=== PATIENT | male | born 1970 | race Caucasian/White ===

== ENCOUNTER 2023-05-27 10:37 | Outpatient (OUT) | payer MEDICARE, SELFPAY ==
--- NOTE | 2023-05-27 10:49 | XR_ITS ---
The [address] [address] Patient Name: JENNY SAEZ MRN: [id number] date: 1970 Sex: M Assigned Patient Location: [facility] Current Patient Location: [facility] Accession/Order Number: [id number] Exam Date: 05/27/2023 10:58 Report Date: 05/27/2023 13:00 At the request of: JEOVANNY CH Procedure: XR knee RT 3V EXAM: XR knee RT 3V HISTORY: . Acute Knee Pain M25.569 . COMPARISON: None. TECHNIQUE: 3 views FINDINGS: There is mild narrowing of the medial joint compartment. Spurs are noted involving the knee joint as well as the patellofemoral joint. No fracture or dislocation is noted. Surrounding soft tissues are unremarkable. XR/XR knee RT 3V IMPRESSION: Mild to moderate osteoarthritic changes of the right knee. Electronically authenticated by: KARYNA HALLMAN Date: 05/27/2023 13:00
== END 2023-05-27 10:38 | disposition home or self-care (01) ==
LOC: RAD 10:44
PROVIDERS: PCP Family Medicine; Visit Provider Family Medicine
DX: M25.569 Pain in unspecified knee (principal); M17.11 Unilateral primary osteoarthritis, right knee
CPT/HCPCS: 73562

== ENCOUNTER 2023-06-01 10:04 | Outpatient (OUT) | payer MEDICARE, SELFPAY ==
--- NOTE | 2023-06-01 10:09 | MR_ITS ---
[place] [id number] Patient Name: JENNY SAEZ MRN: [id number] date: 1970 Sex: M Assigned Patient Location: MRI Current Patient Location: MRI Accession/Order Number: [id number] Exam Date: 06/01/2023 11:00 Report Date: 06/01/2023 12:10 At the request of: JEOVANNY CH Procedure: MR knee RT wo con EXAMINATION: MR knee RT wo con HISTORY: knee pain, acute M25.569 COMPARISON: No relevant comparison available. TECHNIQUE: A complete multi-planar MRI was performed. FINDINGS: MEDIAL COMPARTMENT MEDIAL MENISCUS: Markedly thickened medial meniscus with partial extrusion of the body. Signal abnormality suspicious for tear of the body best seen on coronal image 18 CARTILAGE: Moderate diffuse chondromalacia BONES: Moderate joint space narrowing with marginal osteophyte formation consistent with osteoarthritis . Large area of bone edema in the anterior medial tibial plateau measuring 3.9 x 1.9 x 3.4 cm MCL AND MEDIAL CAPSULE: Normal medial collateral ligament and medial capsule. LATERAL COMPARTMENT LATERAL MENISCUS: No visible tear or significant degeneration. CARTILAGE: No visible defect. BONES: No marrow pathology, fracture, or significant arthropathy. LCL/POSTEROLAT COMPLEX: Normal lateral collateral ligament, fascicles, lateral capsule and ligaments. ANTERIOR COMPARTMENT PATELLA: Subchondral signal abnormality most significant along the lateral patellar facet CARTILAGE: Rogers 4 chondromalacia TENDONS: Normal. EFFUSION: Small joint effusion ACL: Normal appearing ligament. PCL: Normal appearing ligament. MENISCOFEMORAL: Normal meniscofemoral ligaments. OTHER: Negative. MR/MR knee RT wo con IMPRESSION: Moderate to severe osteoarthritis of the medial and anterior compartments Grade IV chondromalacia of the patella most significant in the lateral patellar facet 3.9 cm area of bone edema anterior medial tibial plateau Electronically authenticated by: KARYNA COATES Date: 06/01/2023 12:10
== END 2023-06-01 10:05 | disposition home or self-care (01) ==
LOC: MRI 10:05
PROVIDERS: PCP Family Medicine; Visit Provider Family Medicine
DX: M25.569 Pain in unspecified knee (principal)
CPT/HCPCS: 73721

== ENCOUNTER 2023-12-28 08:03 | Outpatient (OUT) | payer MEDICARE, MEDICAID, SELFPAY ==
--- NOTE | 2023-12-28 08:05 | CT_ITS ---
The [address] [address] Patient Name: JENNY SAEZ MRN: [id number] date: 1970 Sex: M Assigned Patient Location: CT Current Patient Location: Accession/Order Number: [id number] Exam Date: 12/28/2023 08:13 Report Date: 12/29/2023 15:39 At the request of: JEOVANNY CH Procedure: CT lung screening low-dose EXAMINATION: CT lung screening low-dose HISTORY: Smoker COMPARISON: No relevant comparison available. TECHNIQUE: Axial, Coronal, and Sagittal images were created without the administration of IV contrast material. Dose reduction techniques were achieved by using automated exposure control and/or adjustment of mA and/or kV according to patient size and/or use of iterative reconstruction technique. FINDINGS: LUNGS: Mild centrilobular emphysema with an upper lobe predominance. A few scattered punctate pulmonary nodules are identified, nonspecific PLEURA: No mass, effusion, or pneumothorax. VASCULATURE: No abnormality. ABUNDIO: No mass or pathologic adenopathy. MEDIASTINUM: No mass or pathologic adenopathy. CARDIAC: No enlargement or pericardial effusion CORONARY ARTERIES: Patient has had previous coronary artery stenting.. AORTA: No aortic aneurysm. Moderate calcific atherosclerosis CHEST WALL: No mass or axillary adenopathy BONES: No bone lesion or fracture. LIMITED ABDOMEN: No suspicious findings. Limited images of the upper abdomen. OTHER: Negative. CT/CT lung screening low-dose IMPRESSION: LUNG SCREENING: Lung-RADS Category 2- Benign Appearance or Behavior. Nodules with a very low likelihood of becoming a clinically active cancer due to size or lack of growth. 2. Continue annual screening with LDCT in 12 months. Electronically authenticated by: KARYNA COATES Date: 12/29/2023 15:39
== END 2023-12-28 08:04 | disposition home or self-care (01) ==
LOC: CT 08:03
PROVIDERS: PCP Family Medicine; Visit Provider Family Medicine
DX: F17.210 Nicotine dependence, cigarettes, uncomplicated (principal); R91.8 Other nonspecific abnormal finding of lung field; J43.2 Centrilobular emphysema
CPT/HCPCS: 71271

== ENCOUNTER 2024-05-16 14:01 | Outpatient (OUT) | payer MEDICARE, MEDICAID, SELFPAY ==
--- NOTE | 2024-05-16 | XR_ITS ---
[place] [id number] Patient Name: JENNY SAEZ MRN: [id number] date: 1970 Sex: M Assigned Patient Location: Current Patient Location: Accession/Order Number: [id number] Exam Date: 05/16/2024 17:30 Report Date: 05/16/2024 17:31 At the request of: KATHY GALARZA MD Procedure: XR knee RT 4V 4 views right knee plain film COMPARISON: None HISTORY: Right knee pain ACUTE FINDINGS: No acute findings DEGENERATIVE CHANGE: Adequate sunrise view with marginal spurring marked medial joint space narrowing. Mild lateral joint space narrowing. Marginal spurring SOFT TISSUE FINDINGS: Unremarkable JOINT EFFUSION: None POSTOP CHANGES: None BONE MINERALIZATION: Adequate XR/XR knee RT 4V IMPRESSION: Extensive degeneration greatest in medial compartment Impression dictated by: Justin Gaines M.D.05/16/2024 5:31 PM Dictation Location: [place] [address] Electronically authenticated by: [id number] Y Date: 05/16/2024 17:31
== END 2024-05-16 14:02 | disposition home or self-care (01) ==
LOC: EC 14:01
PROVIDERS: PCP Family Medicine; Visit Provider Student in an Organized Health Care Education/Training Program
DX: M17.11 Unilateral primary osteoarthritis, right knee (principal)
CPT/HCPCS: 73564

== ENCOUNTER 2025-01-02 08:46 | Outpatient (OUT) | payer MEDICARE, MEDICAID, SELFPAY ==
--- OUTSIDE RECORDS SUMMARY | 2025-01-02 08:52 | XMS_ITS | Patient Health Record ---
Author Organization [facility] Address [address] [place] [address] Care Team Providers Care Ribber Name Role Phone EstebanRebelRudy Primary Care Provider Rafa Torres Unavailable [phone] Kyle Hendricks Unavailable [phone] Allergies Allergen (clinical drug ingredient) Drug/Non Drug Allergy documented on EMR Reaction Allergy Type Onset Date Status tramadol Ultram Unknown Drug Allergy Active Reason For Referral No Information Medications Medication SIG (Take, Route, Frequency, Duration) Notes Start Date End Date Status metoprolol ActiveatorvastatinActiveLasixActiveaspirinNot-TakinglisinoprilActivePlavixActive Social History Tobacco Use: Social History Observation Description Date Details (start date - stop date) Current Smoker NA - NA AUDIT-C (Standard) Question Answer Notes Did you have a drink containing alcohol in the p ast year? No Tobacco Control (Standard) Question Answer Notes Tobacco use: Current smoker Problems Problem Type SNOMED Code ICD Code Onset Dates Problem Status W/U Status Risk Notes Problem Osteoarthritis of knee (56841183 7) Primary osteoarthritis of right knee (M17.11) Activeconfirmed Encounters Encounter Location Date Provider Diagnosis [facility] Office [address] [place] [address] [place] [address] 05/16/2024 Kyle Hendricks Primary osteoarthrit is of right knee M17.11 Assessments Encounter Date Diagnosis (ICD Code) Assessment Notes Treatment Notes Treatment Clinical Notes Section Notes 05/16/2024 Primary osteoarthritis of right knee (ICD-10 - M17.11) Right knee OA05/16/2024OtherI discussed today with the patient regards right knee pain. Has had prior arthroscopy with Dr. Frost with no relief. Has not tried an injection yet. Prior to proceeding forward to total with attempted injection. Follow-up in 6 weeksRight knee OA Plan Of Treatment Pending Test Test Name Order Date SCC- KNEE 4 VIEW RIGHT [id number] 05/16/2024 Insurance Providers Payer Name Payer Address Payer Phone Subscriber Number Group Number Insured Name Patient Relationship to Insured Coverage Start Date Coverage [place] [address] [place] [address] [id number] CHARLA SAEZelf - patient is the insured[place] Dept of MedicaidP [address] [place] [id number], BRIANSelf - patient is the insured Medical (General) History Medical History History ICD Code Heart attack: Yes Bleeding/Bruising tendency: : YesHeart Attack: YesHeart condition:: YesHeart problems:: YesHeart Stents: YesSurgical History Surgery Date(Month/Year) Heart stents
--- OUTSIDE RECORDS SUMMARY | 2025-01-02 08:52 | XMS_ITS | Clinical Summary ---
Author Organization [facility] Address [address] [place] [address] Phone Care Team Providers Care Student Outreach Coordinator Name Role Phone Rudy Orellana MD Primary Care Provider [phone] Allergies Active AllergyReactionsCriticalityNoted DateCommentsTicagrelorShortness of snovanTucc59/09/2023 Medications MedicationSigDispense QuantityRefillsLast FilledStart DateEnd DateStatus buprenorphine-naloxone (Suboxone) 8-2 mg SL film dissolve 1 film under the tongue once daily01/22/2021ctive nitroglycerin (Nitrostat) 0.[address] TABLET UNDER THE TONGUE EVERY FIVE MINUTES FOR UP TO 3 (THREE) DOSES NEEDED FOR CHEST PAIN. CALL 911 IF PAIN IEPVHLDB50/31/2022ctive lisinopril 5 mg tablet Indications:Benign essential hypertensionTake 0.5 tablets (2.5 mg) by mouth once daily. 45 tablet 4Active nicotine (Nicoderm CQ) 7 mg/24 hr patch Indications:Current smokerPlace 1 patch over 24 hours on the skin once every 24 hours. 30 patch 4Active furosemide (Lasix) 20 mg tablet Indications:Cardiomyopathy, unspecified type (Multi)Take 1 tablet (20 mg) by mouth once daily. 90 tablet 312/5Active clopidogrel (Plavix) 75 mg tablet Indications:Coronary stent thrombosis, initial encounter,History of PTCATake 1 tablet (75 mg) by mouth once daily. 90 tablet /6Active atorvastatin (Lipitor) 80 mg tablet Indications:Hyperlipidemia, unspecified hyperlipidemia type,History of PTCATake 1 tablet (80 mg) by mouth once daily at bedtime. 90 tablet 309/ 5:00 PM EDT/ctive metoprolol succinate XL (Toprol-XL) 25 mg 24 hr tablet Indications:Primary hypertension,Angina pectorisTake 1 tablet (25 mg) by mouth once daily. 90 tablet 5:00 PM EDT/ctive varenicline tartrate (Chantix ZARINA) 0.5 mg (11)- 1 mg (42) tablet DIRECTED EVERY DAY and then TWICE DAILY09/05/2024tive Active Problems ProblemNoted DateDiagnosed DateBMI 28.0-28.9,adult06/09/2023ngina pectoris 12/15/2022therosclerosis of [place] coronary artery of [place] heart without angina mtefejww87/09/2023rimary hrxnvfasyzwj63/09/2593Qmumzepiuvrnym71/09/2023 Coronary stent /09/2023urrent abwous5912/15/2022History of [place] (myocardial infarction)12/15/2022History of PTCA1Hyperlipidemia 12/15/2022Non-dolbthilrk20/09/2023Upper respiratory zaojbzibn08/09/2023 Encounters DateTypeDepartmentCare KjvtVlbndhvtcdi50/31/2025 9:50 AM EDTOffice Visit [place] [address] [address] [address] Arnol Jalloh, DO Atherosclerosis of [place] coronary artery of [place] heart without angina pectoris; History of PTCA; History of [place] (myocardial infarction); Primary hypertension; Mixed hyperlipidemia; BMI 28.0-28.9,adult; Current dnldsp9110/06/2024Travelfrom Last 3 Months Immunizations ImmunizationAdministration DatesNext DueFlu vaccine (IIV4), preservative free *Check age/dose*12/28/2021 Family History Medical HistoryRelationNameCommentsMotor neuron diseaseBrotherPulmonary fibrosis BrotherHeart attackFatherHeart diseaseFatherHyperlipidemiaFatherHypertension FatherProstate cancerFatherGuillium Colbert SyndromMotherHeart diseaseMother HyperlipidemiaMotherHypertensionMotherDiabetesSisterRelationNameStatusComments BrotherFatherMotherSister Social History Tobacco UseTypesPacks/DayYears UsedDateSmoking Tobacco: Every DayCigarettes0.5 39.8Started: 1986Smokeless Tobacco: Never Tobacco Cessation:Counseling Given: Yes Alcohol UseStandard Drinks/WeekCommentsNever0 (1 standard drink = 0.6 oz pure alcohol)Sex and Gender InformationValueDate RecordedSex Assigned at BirthNot on fileLegal WtrUbsh54/26/2022 7:51 PM ESTGender IdentityNot on fileSexual OrientationNot on file Last Filed Vital Signs Vital SignReadingTime TakenCommentsBlood Oieuyvmv016/76010/06/2024 9:53 AM EDT Kyjaj228810/06/2024 9:53 AM EDTTemperature--Respiratory Rate--Oxygen Saturation-- Inhaled Oxygen Concentration--Cjejtl278 kg (221 lb)10/06/2024 9:53 AM EDTHeight 188 cm (6' 2 )10/06/2024 9:53 AM EDTBody Mass Index28.37010/06/2024 9:53 AM EDT Plan of Treatment DateTypeDepartmentCare Team (Latest Contact Info)Ltnbqnslbzy41/04/2026 9:10 AM EDTOffice Visit [facility] [address] [facility] [address] [place] [address] Arnol Jalloh S, [address] [facility] [address] [place] [address] Health MaintenanceDue DateLast DoneCommentsCT Baikksjtjctz25/15/1971Colonoscopy 1970Colorectal Cancer Wnbghekvl04/15/1971FIT-DNA (Cologuard)1970FIT 1970HIV Hgxtlncup43/15/1971Lipid Panel1970Medicare Annual Wellness Visit (AWV)1970 8529Mfqhvcekyykib63/15/1971MMR Vaccines (1 of 1 - Standard series)09/21/1971Diabetes Gvhgqhlvz74/15/1989Hepatitis C Guqidcsqt42/15/1989 Hepatitis B Vaccines (1 of 3 - 19+ 3-dose series)1989Pneumococcal Vaccine (1 of 2 - PCV)1989DTaP/Tdap/Td Vaccines (1 - Tdap)1992PSA Prostate Cancer Qvwqpjkxj26/15/2021Zoster Vaccines (1 of 2)2020Influenza Vaccine (#1)2COVID-19 Vaccine (3 - season)2024 08/27/2020, 08/09/2020HIB VaccinesAged OutNo longer eligible based on patient's age to complete this topicHPV VaccinesAged OutNo longer eligible based on patient's age to complete this topicHepatitis A VaccinesAged OutNo longer eligible based on patient's age to complete this topicIPV VaccinesAged OutNo longer eligible based on patient's age to complete this topicMeningococcal VaccineAged OutNo longer eligible based on patient's age to complete this topic Rotavirus VaccinesAged OutNo longer eligible based on patient's age to complete this topic Insurance Care Teams Team MemberRelationshipSpecialtyStart Date Rudy Orellana MD [address] [facility] [place] [address] [facility]12/02/18
--- OUTSIDE RECORDS SUMMARY | 2025-01-02 08:53 | XMS_ITS | Patient Health Record ---
Author Organization [facility] [place] Address [address] [place] [address] Care Team Providers Care Insecticide Supervisor Name Role Phone Esteban Rebel Primary Care Provider Allergies Allergen (clinical drug ingredient) Drug/Non Drug Allergy documented on EMR Reaction Allergy Type Onset Date Status tramadol Ultram seizures Drug Allergy Active Results Component Value Reference Range Notes XR knee RT 4V Reviewed date:05/16/2024 08:05:03 PM Interpretation: Performing Lab: Notes/Report: Source Facility: [place] [address] XRay Report Signed Patient: JOSS SUTTON MR#: [id number] : 1970 Acct:[id number] Age/Sex: 53 / M ADM Date: 05/16/24 Loc: [facility] Attending Dr: Kyle Hendricks M.D. Ordering Physician: Kyle Hendricks M.D. Date of Service: 05/16/24 Procedure(s): XR knee RT 4V Accession Number(s): [id number] cc: Rudy Orellana M.D.; Kyle Hendricks M.D. [place] [address] Patient Name: JOSS SUTTON MRN: [id number] date: 1970 Sex: M Assigned Patient Location: EC Current Patient Location: EC Accession/Order Number: [id number] Exam Date: 05/16/2024 17:30 Report Date: 05/16/2024 17:31 At the request of: KYLE HENDRICKS MD Procedure: XR knee RT 4V 4 views right knee plain film COMPARISON: None HISTORY: Right knee pain ACUTE FINDINGS: No acute findings DEGENERATIVE CHANGE: Adequate sunrise view with marginal spurring marked medial joint space narrowing. Mild lateral joint space narrowing. Marginal spurring SOFT TISSUE FINDINGS: Unremarkable JOINT EFFUSION: None POSTOP CHANGES: None BONE MINERALIZATION: Adequate XR/XR knee RT 4V IMPRESSION: Extensive degeneration greatest in medial compartment Impression dictated by: Justin Gaines M.D.05/16/2024 5:31 PM Dictation Location: [place] [address] Electronically authenticated by: [id number] Y Date: 05/16/2024 17:31 Dictated By: Justin Gaines D.O. Signed By: 05/16/24 1734 DD/ 30 TD/TT: Pain Management Specialist: Reason For Referral No Information Medications Medication SIG (Take, Route, Frequency, Duration) Notes Start Date End Date Status Triamcinolone Acetonide 0.1 % 1 applicat ion Externally Two times a Week; Duration: 30 days PRN ActiveViagra 100 MG1 tablet as needed Orally Once a day; Duration: 30 daysPRN ActivePlavix 75 MG1 tablet Orally Once a day07/23/2023ctiveMetoprolol Succinate ER 25 MG1 tablet Orally Once a dayActiveNitroglycerin 0.4 MGas directed SublingualPRNActiveLipitor 80 MG1 tablet Orally Once a dayActiveLisinopril 2.5 MG1 tablet Orally Once a dayActiveDiclofenac Sodium 75 MG1 tablet as needed Orally Twice a day4ActiveIbuprofen 800 MG1 tablet with food or milk as needed Orally every 8 hrs; Duration: 30 daysPRNActiveVarenicline Tartrate (Starter) 0.5 MG X 11 & 1 MG X 42as directed Orally QD and then BID08/18/2024 ActiveBlood Pressure Monitor -as directedActive Social History Tobacco Use: Social History Observation Description Date Details (start date - stop date) Current Smoker 03/09/1985 - NA Tobacco Use/Smoking Question Answer Notes Patient is a current smoker When did you start smoking?03/09/1985How often do you smoke cigarettes?every day How many cigarettes a day do you smoke?6-10How soon after you wake up do you smoke your first cigarette?6-30 minutesAdditional Findings: Tobacco UserModerate cigarette smoker (10-19 cigs/day)Alcohol Screen (Audit-C) Question Answer Notes Did you have a drink containing alcohol in the p ast year? Yes How often did you have 6 or more drinks on one occasion in the past year?Never (0 point)How many drinks did you have on a typical day when you were drinking in the past year?1 or 2 drinks (0 point)How often did you have a drink containing alcohol in the past year?Less than monthly (1 point)Wnpkax7Pwuysyxxewsbhr NegativeAUDIT-C (Standard) Question Answer Notes Did you have a drink containing alcohol in the p ast year? No Eqjrej8FndbevgzqdccjfFcgjimpz Problems Problem Type SNOMED Code ICD Code Onset Dates Problem Status W/U Status Risk Notes Problem Chronic maxillary sinusitis (359 96222) Chronic maxillary sinusitis (J32.0) ActiveconfirmedProblemPrimary osteoarthritis (850274923)Unilateral primary osteoarthritis, right knee (M17.11)ActiveconfirmedProblemShortness of breath (047301294)Shortness of breath (R06.02)ActiveconfirmedProblemFatigue (71777666) Fatigue (R53.83)ActiveconfirmedProblemHyperlipidemia (95258494)Hyperlipidemia (E78.5)ActiveconfirmedProblemHypertension (14824349)Hypertension (I10)Active confirmedProblemNeck pain (55008382)Neck pain (M54.2)ActiveconfirmedProblemEdema (77476234)Edema (R60.9)ActiveconfirmedProblemSmoker (00560780)Smoker (F17.200) ActiveconfirmedProblemCoronary atherosclerosis (205956115)Coronary atherosclerosis (I25.10)ActiveconfirmedProblemWell adult (190061771)Well adult (Z00.00)ActiveconfirmedProblemSolitary nodule of lung (012193263)Lung nodule (R91.1)ActiveconfirmedProblemParesthesia (18451980)Paresthesia (R20.2)Active confirmedProblemSeasonal allergic rhinitis (770918652)Seasonal allergic rhinitis (J30.2)ActiveconfirmedProblemAcute sinusitis (04877942)Acute sinus infection (J01.90)ActiveconfirmedProblemOverweight (511176296)Over weight (E66.3)Active confirmedProblemDegeneration of cervical intervertebral disc (70963061) Degenerative cervical disc (M50.30)ActiveconfirmedProblemDegeneration of thoracic intervertebral disc (62624540)Degenerative disc disease, thoracic (M51.34)ActiveconfirmedProblemChronic obstructive pulmonary disease (28283900) COPD, mild (J44.9)ActiveconfirmedProblemLumbosacral spondylosis (838150015) Lumbosacral spondylosis (M47.817)ActiveconfirmedProblemSeizure (95293217)Single seizure (R56.9)ActiveconfirmedProblemInternal derangement of knee (33064876) Internal derangement of knee (M23.90)ActiveconfirmedProblemHip joint pain (5227714641)Hip joint pain (M25.559)ActiveconfirmedProblemAcute pain of joint of knee (finding) (970441988414332)Knee pain, acute (M25.569)ActiveconfirmedProblem Pain in the coccyx (M53.3)ActiveconfirmedProblemSTEMI - ST elevation myocardial infarction (605931677)Acute ST elevation myocardial infarction (STEMI) (I21.3) ActiveconfirmedProblemAcute myocardial infarction (68052359)Acute myocardial infarction, unspecified site, initial episode of care (I21.3)Activeconfirmed ProblemDisplacement of thoracic intervertebral disc without myelopathy (97860584)Disc displacement, thoracic (M51.24)Activeconfirmed Vital Signs Blood pressure diastolic 86 mm Hg 08/18/2024 Uivvtp90 in08/18/2024lood pressure ixipwcoj996 mm Hg08/18/20241097Dyfbau115.8 lbs 08/18/2024BMI28.6 kg/m208/18/2024 Encounters Encounter Location Date Provider Diagnosis [facility] [address] [place] [address] 08/18/2024 Rebel Esteban Edema R60.9 and Seasonal allergic rhinitis J30.2 [facility] [address] [place] [address] 02/15/[address] [facility] [place] [address] [facility] [place] [address]/22/2025Doug HoyLung nodule R91.1 Assessments Encounter Date Diagnosis (ICD Code) Assessment Notes Treatment Notes Treatment Clinical Notes Section Notes 08/18/2024 Edema (ICD-10 - R60.9) 08/18/2024Seasonal allergic rhinitis (ICD-10 - J30.2)12/28/2024Lung nodule (ICD- 10 - R91.1) Plan Of Treatment Pending Test Test Name Order Date HEMOGLOBIN A1C (GLYCO) 08/18/2024 LIPID PANEL (CHOL/TRIG/HDL/LDL) 08/19/[address] Chest Low Dose for Screening* 025 High Sensitivity Troponin 08/18/2024 STOOL OCCULT BLOOD 08/18/2024 BNP 08/18/2024 CT SINUSES WO CON 06/30/2022 MRI KNEE RT WO CON 05/27/2023 THYROID PANEL (T4/TSH/FREE T3) PSA, SCREENING 08/18/2024 CT CHEST LOW DOSE (LDCT) 12/21/2023 CMP (COMP MET ARELLANO) w/eGFR CKD-EPI 2024 CBC WITH DIFF 08/18/2024 Insurance Providers Payer Name Payer Address Payer Phone Subscriber Number Group Number Insured Name Patient Relationship to Insured Coverage Start Date Coverage End Date [place]IC[place] [address] [place] [address] [id number] Saroj Suttonelf - patient is the insuredMEDICAID [facility] [address] [place] [place] [id number], Brian Self - patient is the insured Medications Administered Medication Instructions Date of Administration Dosage Notes Kenalog-40 fk357Jykdufg-9319/14/2024120 as494Qshcetkahjajh 40 mg/ml08/18/2024 80 mg Medical (General) History Medical History History ICD Code COPD, mild J44.9 Pain in the coccyx M53.3 Knee pain M25.[address] elevation myocardial infarction (STEMI) I21.3 Fatigue R53.83 Neck pain M54.2 Hip joint pain M25.559 Well adult Z00.00 Over weight E66.3 Current smoker F17.200 Shortness of breath R06.02 Coronary atherosclerosis I25.10 Hyperlipidemia E78.5 Hypertension I10 Disc displacement, thoracic M51.24 Lumbosacral spondylosis M47.817 Degenerative cervical disc M50.30 Acute myocardial infarction, unspecified site, initial episode of care I21.3 Degenerative disc disease, thoracic M51. 34 Paresthesia R20.2 Single seizure R56.9 Surgical History Surgery Date(Month/Year) Neck fusion- cspine Right shoulder scopeLabrum tearRight knee scope t9Dsxnfhj stents
--- NOTE | 2025-01-02 09:02 | CT_ITS ---
The [address] [address] Patient Name: JENNY SAEZ MRN: [id number] date: 1970 Sex: M Assigned Patient Location: CT Current Patient Location: CT Accession/Order Number: [id number] Exam Date: 01/02/2025 09:09 Report Date: 01/02/2025 09:57 At the request of: JEOVANNY CH MD Procedure: CT lung screening low-dose LOW-DOSE SCREENING CHEST CT WITHOUT CONTRAST COMPARISON: 12/28/2023 CLINICAL DATA: Smoker for approximately 39 years. Lung nodules. Spiral axial unenhanced low-dose images were obtained through the chest. Images were reviewed using both narrow and wide window settings. This CT exam was performed using one or more following dose reduction techniques: Automated exposure control, adjustment of the mA and/or kV according to patient size, or use of iterative reconstruction technique. Heart is top normal in size. There is no pericardial effusion. Coronary artery disease and/or stents are noted. The ascending aorta is slightly ectatic. There is minor atherosclerotic plaque at the aorta and proximal great vessels. Similar small mediastinal lymph nodes are again visualized. There is subtle dextroscoliotic curvature and mild degenerative changes at the spine. Slight wedge deformity at T11 and T12 is unchanged and probably physiologic. There are air space lucencies compatible with obstructive lung disease. There is minimal atelectasis or scarring. No developing consolidation, pleural effusion or pneumothorax is visualized. Similar tiny nodular densities are again visualized measuring up to 4 mm in size. No new nodularity is noted. Limited imaging through the upper abdomen shows no contributory findings. CT/CT lung screening low-dose IMPRESSION: OBSTRUCTIVE LUNG DISEASE. TINY STABLE PULMONARY NODULES. Lung RADS category 2 - benign Twelve-month low-dose CT follow-up suggested Impression dictated by: Tara Young M.D. 01/02/2025 9:57 AM Dictation Location: [place] [address] Electronically authenticated by: [id number] Y Date: 01/02/2025 09:57
--- OUTSIDE RECORDS SUMMARY | 2025-01-02 09:06 | XMS_ITS | CCD ---
Author Organization [facility] Care Team Providers Care Die Maintenance Technician Name Role Phone Jeovanny Orellana Unavailable Unavailable Unavailable Jeovanny Orellana Primary Care Physician [phone] Piotr FISHMAN Attending Unavailable NASY ., DR UP Admitting Unavailable NASY ., DR UP Attending Unavailable HOY ., DR UP Primary Care Unavailable HOY ., DR UP Admitting Unavailable HOY ., DR UP Attending Unavailable HOY ., DR UP Primary Care Unavailable Shubham, Dr. Dannielle Rinaldi Referring Unava iljose Orellana, Dr. Jeovanny Katz Primary Care Unavail able Shubham, Dr. Dannielle Rinaldi Attending Unaaries Membreno, Dr. Dannielle Rinaldi Referring Unava iljose Orellana, Dr. Jeovanny Katz Primary Care Unavail able Shubham, Dr. Dannielle Rinaldi Attending MD Jeovanny Santo Primary Care Provider DO Haile Membreno Attending Provider Jeovanny Orellana Primary Care Unavailable Haile Membreno Attending Unavailable Haile Membreno Admitting Unavailable Jeovanny Orellana MD Primary Care Provider [phone] Jeovanny Orellana MD Primary Care Provider [phone] DANNIELLE MEMBRENO Attending Unavailable DANNIELLE MEMBRENO Referring Unavailable JEOVANNY ORELLANA Primary Care Unavailable Allergies Allergy ClassificationReported Allergen(s)Allergy TypeDate of OnsetReaction(s) Facility (1 source)traMADolDrug AllergyThe [facility] (4 sources)Ticagrelor; Translations: [Brilinta TABS]Drug Edmvciz10-24-6297 [facility] (1 source)Ticagrelor; Translations: [TICAGRELOR]Drug Qrqxrcf26-86-3567[facility] Repository Medications Current Medications MedicationDrug Class(es)DatesSig (Normalized)Sig (Original)atorvastatin 80 mg oral tablet (15 sources)HMG-CoA Reductase InhibitorStart: 09-01-2024 End: 67-11-4751hlam 1 tablet by mouth once daily at bedtimeatorvastatin (Lipitor) 80 mg tablet Indications: Hyperlipidemia, unspecified hyperlipidemia type , History of PTCA Take 1 tablet (80 mg) by mouth once daily at bedtime. 90 tablet 3 09/01/2024 09/01/2025 ActiveStart: 52-74-0568kxoj 1 tablet by mouth once daily at bedtimeatorvastatin (Lipitor) 80 mg tablet Take 1 tablet (80 mg) by mouth once daily at bedtime. 0 06/21/2020 ActiveStart: 08-17-2018 End: 90-76-2510dwiv 1 tablet by mouth once daily at bedtimeAtorvastatin (Lipitor) 40 mg tablet Active 40 MG PO Daily at bedtime July 29, 2019 7:51am Start: 08-15-2018 End: 17-29-0573fjvk 20 mg by mouth once dailyAtorvastatin Discontinued 20 MG PO Daily August 15, 2018 12:00am August 17, 2018 12:11pmSuboxone (12 sources)Partial Opioid Agonist, Opioid AntagonistStart: 98-64-4708Inrqfxfa SubLingual, Daily Start Date: 07/09/22 Status: OrderedStart: 01-22-2021 buprenorphine-naloxone (Suboxone) 8-2 mg SL film dissolve 1 film under the tongue once daily 01/22/2021 ActiveStart: 01-15-2260Fxfzjwyeycfyu HCl-Naloxone HCl - 8-2 MG Sublingual Film dissolve 1 film under the tongue once daily Quantity: 28 Refills: 0 Ordered: 22-Jan-2021 DO Start : 22-Jan-2021 Active clopidogrel 75 mg oral tablet (2 sources)P2Y12 Platelet InhibitorStart: 07-12-2024 End: 80-71-3429hhlm 1 tablet by mouth once dailyclopidogrel (Plavix) 75 mg tablet Indications: Coronary stent thrombosis, initial encounter , History of PTCA Take 1 tablet (75 mg) by mouth once daily. 90 tablet 07/12/2024 07/12/2025 ActiveStart: 06-09-2023 End: 40-73-5558efcz 1 tablet by mouth once dailyclopidogrel (Plavix) 75 mg tablet Indications: Atherosclerosis of [place] coronary artery of [place] heart without angina pectoris , History of PTCA Take 1 tablet (75 mg) by mouth once daily. 90 tablet3 06/09/2023 06/08/2024 Activefurosemide 20 mg oral tablet (11 sources)Loop DiureticStart: 03-07-2024 End: 54-48-6604wert 1 tablet by mouth once dailyfurosemide (Lasix) 20 mg tablet Indications: Cardiomyopathy, unspecified type (Multi) Take 1 tablet(20 mg) by mouth once daily. 90 tablet 3 03/07/2024 03/07/2025 ActiveStart: 35-50-2425utmb 1 tablet by mouth once dailyfurosemide (Lasix) 20 mg tablet Indications: Cardiomyopathy, unspecified type (CMS/HCC) Take 1 tablet (20 mg) by mouth once daily. 90 tablet 2 05/20/2023 ActiveStart: 18-06-8992fwgz 1 tablet by mouth once dailyFurosemide 20 MG Oral Tablet TAKE 1 TABLET BY MOUTH EVERY DAY Quantity: 90 Refills: 3 Ordered: 09-Apr-2022 Dannielle Membreno DO Start : 28-Nov-2020 Active ibuprofen 800 mg oral tablet (1 source)Nonsteroidal Anti-inflammatory DrugStart: 70-27-9586soru 800 mg by mouth every six hoursIbuprofen Active 800 MG PO Q6H August 03, 2019 12:00am lisinopril 5 mg oral tablet (15 sources)Angiotensin Converting Enzyme InhibitorStart: 05-20-2023 End: 30-06-0120kpud 0.5 tablet by mouth once dailylisinopril 5 mg tablet Indications: Benign essential hypertension Take 0.5 tablets (2.5 mg) by mouth once daily. 45 tablet 3 05/20/2023 ActiveStart: 10-02-1562urny 0.5 tablet by mouth once dailyLisinopril 5 MG Oral Tablet TAKE ONE-HALF TABLET BY MOUTH DAILY Quantity: 45 Refills: 3 Ordered: 09-Apr-2022 Dannielle Membreno DO Start : 07-Feb-2021 ActiveStart: 15-44-5799qudz 1 mg by mouth once dailylisinopril 2.5 mg Tab mg tab(s), Oral, Daily, Refills(s) 0 Start Date: 05/18/19 Status: Ordered Start: 10-18-2018 End: 07-86-6936bgai 2.5 mg by mouth once daily in the morningLisinopril Active 2.5 MG PO Every morning July 29, 2019 7:51am24 hr metoprolol succinate 25 mg extended release oral tablet (14 sources)beta-Adrenergic BlockerStart: 09-01-2024 End: 73-42-0987buur 1 tablet by mouth once dailymetoprolol succinate XL (Toprol- XL) 25 mg 24 hr tablet Indications: Primary hypertension , Angina pectoris Take 1 tablet (25 mg) by mouth once daily. 90 tablet 3 09/01/2024 09/01/2025 Active Start: 93-84-8558gmdp 1 tablet by mouth once dailyMetoprolol Succinate ER 25 MG Oral Tablet Extended Release 24 Hour TAKE 1 TABLET BY MOUTH EVERY DAYQuantity: 90 Refills: 3 Ordered: 02-Sep-2022 Dannielle Membreno DO Start : 02-Sep-2022 ActiveStart: 04-87-3215iexj 50 mg by mouth once dailyToprol-XL 50 mg, Oral, Daily, Refills(s) 0 Start Date: 05/28/16 Status: Xnitpsv03 hr nicotine 0.875 mg/hr transdermal system (7 sources)Cholinergic Nicotinic AgonistStart: 06-09-2023 End: 86-11-7738sehhq 1 dose transdermal route every twenty-four hoursnicotine (Nicoderm CQ) 14 mg/24 hr patch Indications: Current smoker Place 1 patch over 24 hours onthe skin once every 24 hours. 30 patch 06/09/2023 ActiveStart: 06-09-2023 End: 44-52-3092sjrml 1 dose transdermal route every twenty-four hoursnicotine (Nicoderm CQ) 21 mg/24 hr patch Indications: Current smoker Place 1 patch over 24 hours onthe skin once every 24 hours. 30 patch 06/09/2023 ActiveStart: 06-09-2023 End: 89-82-9258bliueelc (Nicoderm CQ) 7 mg/24 hr patch Indications: Current smoker Place 1 patch over 24 hours on the skin once every 24 hours. 30 patch 06/09/2023 ActiveStart: 57-07-9241ogwdl 1 dose transdermal route once daily Nicotine Active 1 PATCH TRANSDERML Daily August 03, 2019 12:00amnitroglycerin 0.4 mg sublingual tablet (12 sources)Nitrate VasodilatorStart: 57-05-7878xcdwjgxxamzzt (Nitrostat) 0.[address] TABLET UNDER THE TONGUE EVERY FIVE MINUTES FOR UP TO 3 (THREE) DOSES NEEDED FOR CHEST PAIN. CALL 911 IF PAIN PERSISTS 01/06/2022 Active Start: 01-38-6695Tyrpdznylfdle 0.4 MG Sublingual Tablet Sublingual PL[address] TABLET UNDER THE TONGUE EVERY FIVE MINUTES FOR UP TO 3 (THREE) DOSES NEEDED FOR CHEST PAIN. CALL 911 IF PAIN PERSISTS Quantity: 1 Refills: 3Ordered: 06-Jan-2022 Dannielle Membreno DO Start : 06-Jan-2022 Activevarenicline (1 source)Partial Cholinergic Nicotinic AgonistStart: 01-37-6641wazpjcwwzie tartrate (Chantix ZARINA) 0.5 mg (11)- 1 mg (42) tablet DIRECTED EVERY DAY and then TWICE DAILY 09/05/2024 Active Completed/Discontinued Medications MedicationDrug Class(es)DatesSig (Normalized)Sig (Original)24 hr alfuzosin hydrochloride 10 mg extended release oral tablet (1 source)alpha-Adrenergic BlockerStart: 14-12-7005snct 1 tablet by mouth once daily in the morningalfuzosin 10 mg ER Tab 10 mg = 1 tab(s), Oral, Daily, 1 tab qAm, # 90 tab(s), Refills(s) 3, Pharmacy: [id number] [place], [place], cm, 05/18/19 10:32:00 EDT, Height/Length Measured, 101.5, kg, 05/18/19 10:32:00 EDT, Weight Measured Start Date: 05/18/19 Status: Orderedaspirin 81 mg delayed release oral tablet (12 sources)Platelet Aggregation Inhibitor, Nonsteroidal Anti-inflammatory Drug Start: 08-15-2018 End: 39-27-3718fvau 1 tablet by mouth once dailyaspirin 81 mg EC tablet Take 1 tablet (81 mg) by mouth once daily. 0 11/20/2020 06/09/2023 Discontinued (Therapy completed)Start: 14-77-7590qlki 81 mg by mouth once dailyaspirin 81 mg, Oral, Daily, Refills(s) 0 Start Date: 05/28/16 Status: OrderedbuPROPion hydrochloride 75 mg oral tablet (2 sources)AminoketoneStart: 05-46-2663dwov 1 tablet by mouth once daily buPROPion HCl - 75 MG Oral Tablet Take 1 tablet daily Quantity: 90 Refills: 3 Ordered: 19-Feb-2022 Dannielle Membreno DO Start : 19-Feb-2022 Activepotassium chloride 10 meq extended release oral tablet (3 sources)Start: 89-81-8271pejk 1 tablet by mouth once dailyPotassium Chloride ER 10 MEQ Oral Tablet Extended Release one tablet daily Quantity: 90 Refills: 0 Ordered: 11-Dec-2021 Dannielle Membreno DO Start : 20-Nov-2020 Activeprasugrel 5 mg oral tablet (13 sources)P2Y12 Platelet InhibitorStart: 30-98-5226ldwe 1 tablet by mouth once dailyPrasugrel HCl - 5 MG Oral Tablet TAKE 1 TABLET DAILY DIRECTED. Quantity: 90 Refills: 3 Ordered: 19-Feb-2022 Dannielle Membreno DO Start : 19-Feb-2022 Active dose changeStart: 10-18-2018 End: 82-73-9843sfzc 1 tablet by mouth once daily in the morningPrasugrel (Effient) 10 mg tablet Active 10 MG PO Every morning July 29, 2019 7:51am sildenafil 100 mg oral tablet (1 source)Phosphodiesterase 5 InhibitorStart: 08-15-2018 End: 76-69-2928hdmr 1 tablet by mouth once dailySildenafil (Viagra) 100 mg tablet Discontinued 100 MG PO Daily August 15, 2018 12:00am August 17, 2018 12:11pmticagrelor 90 mg oral tablet (1 source)Start: 08-17-2018 End: 70-98-4019rsaz 1 tablet by mouth twice dailyTicagrelor (Brilinta) 90 mg Tablet Discontinued 90 MG PO Twice daily 180 90 August 17, 2018 12:00amAugu2018 3:06pm Problems Active Problems Problem ClassificationProblemDateDocumented DateEpisodic/ChronicAcute myocardial infarction (4 sources)Myocardial infarction; Translations: [Non-ST elevation (NSTEMI) myocardial infarction]82-30-9184JqhmvxrJssuoer dysrhythmias (2 sources)Atrial fibrillation; Translations: [Nonsustained ventricular tachycardia ]57-02-7369HqoihidOlkhhwly atherosclerosis and other heart disease (20 sources)Coronary atherosclerosis; Translations: [Coronary atherosclerosis of [place] coronary artery]Onset: 390364-14-3584SqucqwxWjtkugb on above: anterior wall;Coronary atherosclerosis and other heart disease (2 sources)Coronary angioplasty status; Translations: [Coronary angioplasty status]Onset: 20-34-0515LfzgieulWrqylsqsq of lipid metabolism (19 sources)Hyperlipidemia; Translations: [Other and unspecified hyperlipidemia] Onset: 173057-89-0388BcbinpyRvuidahp; convulsions (1 source)Xwxbqao92-97-3885EmyvafjkVknvurv on above:one-time incidentEssential hypertension (19 sources)Benign essential hypertension; Translations: [Benign essential hypertension]Onset: 403823-00-2604DubijvmPuwxx and electrolyte disorders (1 source)Hypokalemia; Translations: [Hypokalemia]06-32-3041GrfzbrxsUyzmfswbnie of prostate (3 sources)Benign prostatic hypertrophy without outflow obstruction; Translations: [Benign prostatic hyperplasia without lower urinary tract symptoms]Onset: 42-78-0945GhjxpmrItfkeoiumizhm and screening for infectious disease (2 sources)Patient encounter status; Translations: [Other specified vaccination] EpisodicInflammatory conditions of male genital organs (1 source)Ifnnnvglmao66-35-8852OavidarcIjzqx disorders and dislocations; trauma-related (1 source)Derangement of uagy86-20-3502UohrxgcVdzr disease due to external agents (10 sources)Reactive airways dysfunction syndrome; Translations: [Other acute and subacute respiratory conditions due to fumes and vapors]EpisodicNonspecific chest pain (1 source)Chest pain; Translations: [Chest pain, unspecified]70-91-7157Lryxzxkx Osteoarthritis (2 sources)Arthritis; Translations: [Osteoarthritis]54-95-6243CbzwxedQtwgape on above:right kneeOther and ill-defined heart disease (1 source)Heart jjczbye72-85-1194XwwtzmhQwpzs circulatory disease (10 sources)History of clinical finding in subject; Translations: [Personal history of other diseases of circulatory system]EpisodicOther lower respiratory disease (10 sources)Dyspnea on exertion; Translations: [Shortness of breath]Episodic Other male genital disorders (2 sources)Male erectile dysfunction, unspecified; Translations: [Erectile dysfunction]Onset: 85-64-6577JvkmhfsGvnyp male genital disorders (1 source)Induratio penis kbsijqmc54-62-8210NlvnvpgRdbwb nervous system disorders (1 source)Rkcwuweqxxk12-52-4672JmajnocoQefrzbm on above:ribsOther non-traumatic joint disorders (1 source)Knee ufxq84-60-4254JxmaqqheZzaou non-traumatic joint disorders (1 source)Pain in ymani91-86-0711EeprtcrcQutdo non-traumatic joint disorders (1 source)Shoulder joint jrat01-83-8995BxcspgthSgpli non-traumatic joint disorders (1 source)Shoulder jqzw44-60-8409LtchzoapWeefu nutritional; endocrine; and metabolic disorders (1 source)Obesity; Translations: [Obesity, unspecified]92-28-9566GpchzveYmrea nutritional; endocrine; and metabolic disorders (13 sources)Overweight in adulthood with body mass index of 25 or more but less than 30; Translations: [Overweight]Onset: 151040-72-6663QqqsvrryApnsf nutritional; endocrine; and metabolic disorders (2 sources)Body mass index (BMI) 28.0-28.9, adult; Translations: [Body mass index (BMI) 28.0-28.9, adult]Onset: 74-63-1758TqcitfbeKdax-; endo-; and myocarditis; cardiomyopathy (except that caused by tuberculosis or sexually transmitted disease) (12 sources)Cardiomyopathy; Translations: [Other primary cardiomyopathies]Onset: 480563-37-0662PgvheezQcwpqpci codes; unclassified (1 source)Body mass index 20-24 - normal; Translations: [Body Mass Index between 19-24, adult]EpisodicResidual codes; unclassified (1 source)Family history of cancer; Translations: [Family history of malignant neoplasm of prostate]Onset: 02-06-1993UmbgtzndFzezxtiw codes; unclassified (1 source)Family history of prostate -45-0802AspusgzgJicumtqfmrz; intervertebral disc disorders; other back problems (3 sources)Cervical disc disorder; Translations: [Lumbar spondylosis]06-10-2016 ChronicSubstance-related disorders (17 sources)Smoker; Translations: [Tobacco use disorder]Onset: 12-15-2022 79-31-5480IjnuakxYcceaoj on above:3/4 PPD;Added secondary to documentation in Social History.Superficial injury; contusion (1 source)Hematoma of vibjg16-26-6972Hispokei Past or Other Problems Problem ClassificationProblemDateDocumented DateEpisodic/ChronicComplication of device; implant or graft (12 sources)Coronary artery stent thrombosis; Translations: [Other complications due to other cardiac device, implant, and graft]Onset: 131734-26-8302 EpisodicOther nutritional; endocrine; and metabolic disorders (1 source)Overweight; Translations: [Overweight] Resolved: 12-11-0084DjwyuwwiZnwhy upper respiratory infections (12 sources)Upper respiratory infection; Translations: [Acute upper respiratory infections of unspecified site]Onset: 646681-85-6742TofomgahAtcsowpg codes; unclassified (14 sources)Noncompliance with treatment; Translations: [Personal history of noncompliance with medical treatment, presenting hazards to health]Onset: 808809-74-4177Ndfcyzhv Results Test NameValueInterpretationReference RangeFacilityCholesterol [Mass/volume] in Serum or PlasmaOrdered By: Haile Membreno on 63-36-3005Kmrfuazgfxa [Mass/Vol]119 mg/cT053-869IdwxpxiwjTwin City HospitalComment on above:Chol less than 200 mg/dl low riskChol 201-239 mg/dl borderline riskChol 240 mg/dl and greater high riskCholesterol in LDL Calc [Mass/Vol]Ordered By: Haile Membreno on 08-28-2022 Cholesterol in LDL [Mass/Vol]64 mg/dL0-100[facility] Comment on above:LDL ATP III CLASSIFICATIONLDL less than 100 mg/dL OptimalLDL 100-129 mg/dL Near or above qusvgrpKTE286-588 mg/dL Borderline highLDL 160-189 mg/dL HighLDL greater than 189 mg/dL Very highCholesterol in VLDL Calc [Mass/Vol]Ordered By: Haile Membreno on 31-01-5640Zavxhimggfy in VLDL [Mass/Vol]15 mg/dLTwin City HospitalLaboratory - Chemistry and Chemistry - challengeon 34-83-2661Hfyjyyvkrba [Mass/Vol]119\S\119below low gjabqkdiv970-614 MP-[facility] 250 DO Work Phone: Comment on above:Chol less than 200 mg/dl low risk Chol 201-239 mg/dl borderline risk Chol 240 mg/dl and greater high risk Cholesterol in LDL [Mass/Vol]64\S\52Xitfnu2-715SC-EcyxpNorthfield City Hospital 250 DO Work Phone: Comment on above:LDL ATP III CLASSIFICATION LDL less than 100 mg/dL Optimal LDL 100-129 mg/dL Near or above optimal LDL 130-159 mg/dL Borderline high LDL 160-189 mg/dL High LDL greater than 189 mg/dL Very high Lipid Panelon 54-98-1700Eqjajhdztar [Mass/Vol]119 mg/fQQof531-812GqupjjahqTwin City HospitalComment on above:Result Comment: Chol less than 200 mg/dl low risk Chol 201-239 mg/dl borderline risk Chol 240 mg/dl and greater high riskPerformed By: #### LIPID #### [facility] [address] [place] [address] USACholesterol in HDL [Mass/Vol]40 mg/hPJnsgtj43-09TrgshbiwxTwin City HospitalComment on above:Result Comment: HDL CHOL ATP-III CLASSIFICATION Cardiovascular Risk HDL > or equal to 60 mg/dL LOW HDL < 40 mg/dL HIGHPerformed By: #### LIPID #### [facility] [address] [place] [address] USACholesterol.total/Cholesterol in HDL [Mass ratio]3.0 {ratio}Normal<5.0T[facility] City HospitalComment on above:Result Comment: PERFORMED BY: [address] TECHNOLOGIST ANDIE ROY M.D.Performed By: #### LIPID #### [facility] [address] [place] [address] [place]ALDL Cholesterol,Anpfzudsqq45 mg/dLNormal0-100[facility] Medical CenterComment on above:Result Comment: LDL ATP III CLASSIFICATION LDL less than 100 mg/dL Optimal LDL 100-129 mg/dL Near or above optimal LDL 130-159 mg/dL Borderline high LDL 160-189 mg/dL High LDL greater than 189 mg/dL Very highPerformed By: #### LIPID #### [facility] [address] [place] [address] USATriglyceride w/Wapnfw45 mg/dLNormal0-149T[facility] City HospitalComment on above:Result Comment: TRIG ATP III CLASSIFICATION TRIG less than 150 mg/dL Normal TRIG 150-199 mg/dL Borderline high TRIG 200-500 mg/dL High TRIG greater than 500 mg/dL Very high Standard traceable to the Center for Disease Conrtrol and Prevention (CDC) test method.Performed By: #### LIPID #### [facility] [address] [place] [address] USAVLDL EQTFMKNWSWN48 mg/dLNoMount Carmel Health SystemComment on above:Performed By: #### LIPID #### [facility] [address] [place] [address] [place]ANo Panel Informationon .0\S\3.0Normal<5.0MP- [facility] 250 DO Work Phone: Comment on above:PERFORMED BY:[facility] [place] [address] [phone] MEDICAL DIRECTORANDIE ROY M.D.15\S\15NormalMP-[facility] 250 DO Work Phone: [phone]\S\77Qnrkal9-655ZR-Ncznv [facility] 250 DO Work Phone: Comment on above:TRIG ATP III CLASSIFICATION TRIG less than 150 mg/dL Normal TRIG 150-199 mg/dL Borderline high IZQF458-833 mg/dL High TRIG greater than 500 mg/dL Very high Standard traceable to the Center for Disease Conrtrol and Prevention (CDC) test method.40\S\58Bwxfvl84-43SX-Mrheb [facility] 250 DO Work Phone: Comment on above:HDL CHOL ATP-III CLASSIFICATION Cardiovascular Risk HDL > or equal to 60 mg/dL LOW HDL < 40 mg/dL HIGHOffice Visit (Cardiology)on 59-00-1250Rimgiu-up visitDiagnoses/Problems Assessed Atherosclerosis of [place] coronary artery of [place] heart without angina pectoris (414.01) (I25.10) History of DC (myocardial infarction) (412) (I25.2) anterior wall History of PTCA (V45.82) (Z98.61) Hyperlipidemia (272.4) (E78.5) Benign essential hypertension (401.1) (I10) Current smoker (305.1) (F17.200) 3/4 PPD Overweight with body mass index (BMI) of 28 to 28.9 in adult (278.02,V85.24) (E66.3,Z68.28) Orders Atherosclerosis of [place] coronary artery of [place] heart without angina pectoris Renew: Aspirin Adult Low Strength 81 MG Oral Tablet Delayed Release; Take 1 tablet daily Overweight with body mass index (BMI) of 28 to 28.9 in adult Healthy Weight Tips; Status:Complete; Done: 09Ubj5619 Some eating tips that can help you lose weight.; Status:Complete; Done: 10Unf3651 SocHx: Current smoker Tobacco Use Screening; Status:Complete; Done: 65Vnj5528 You need to stop smoking. Though it is not easy, more than half of all adult smokers have quit. We encourage you to write down all the reasons you should quit smoking and set a quit date for yourself. Ask us how we can help. You may also call 0-339-EPARNOW for free resources and assistance.; Status:Complete; Done: [id number] Patient Instructions Please bring all medicines, vitamins, and herbal supplements with you when you come to the office. Prescriptions will not be filled unless you are compliant with your follow up appointments or have a follow up appointment scheduled as per instruction of your physician. Refills should be requested at the time of your visit. Follow up in [8 ] months Chief Complaint JENNY SUTTON is being seen for a 6 month follow-up of. 51-year-old gentleman returns for follow-up, he is doing well without cardiovascular events, angina, nitrate usage or recurrent events. He is still smoking but actively engaged in smoking cessation, he has a Chantix prescription and is beginning currently. Last heart catheterization 2019 revealed widely patent LAD diagonal branch stents and RCA stents. He has an extensive history of prior MIs involving LAD diagonal branch details of which are noted in my last note in February 2022 with multiple interventions including stent to different stent thrombosis events. Fortunately the stents as of 2019 remain widely patent on current therapies including DAPT that is ongoing. Most recent lipid panel reveals LDL of 64, triglycerides 76. We counseled him on tobacco cessation and his diligence in trying to quit, will continue current therapies, follow-up in 6 to 12 months Surgical History Problems History of Cardiac catheterization Denied: History of Colonoscopy History of Knee surgery History of Percutaneous transluminal coronary angioplasty History of Shoulder surgery 12Mar2005 History of Spinal surgery neck surgery Current Meds Medication NameInstruction Aspirin Adult Low Strength 81 MG Oral Tablet Delayed ReleaseTake 1 tablet daily Atorvastatin Calcium 80 MG Oral TabletTAKE 1 TABLET AT BEDTIME Buprenorphine HCl-Naloxone HCl - 8-2 MG Sublingual Filmdissolve 1 film under the tongue once daily Furosemide 20 MG Oral TabletTAKE 1 TABLET BY MOUTH EVERY DAY Lisinopril 5 MG Oral TabletTAKE ONE-HALF TABLET BY MOUTH DAILY Metoprolol Succinate ER 25 MG Oral Tablet Extended Release 24 HourTAKE 1 TABLET DAILY. Nitroglycerin 0.4 MG Sublingual Tablet SublingualPLACE TABLET UNDER THE TONGUE EVERY FIVE MINUTES FOR UP TO 3 (THREE) DOSES NEEDED FOR CHEST PAIN. CALL 911 IF PAIN PERSISTS Prasugrel HCl - 5 MG Oral TabletTAKE 1 TABLET DAILY DIRECTED. Allergies Medication Brilinta TABS Adverse Reaction; Shortness of breath;; Recorded By: Chiquita Downing; 08/28/2022 9:57:53 AM Social History Problems Caffeine use (V49.89) (Z78.9) 2-3 serving daily Consumes alcohol (V49.89) (Z78.9) a beer here or there Current smoker (305.1) (F17.200) 3/4 PPD No illicit drug use Review of Systems Constitutional: not feeling tired. Cardiovascular: no intermittent leg claudication and as noted in HPI. Respiratory: no cough and no shortness of breath. Gastrointestinal: no change in bowel habits and no blood in stools. Integumentary: no skin rashes. Neurological: no seizures and no frequent falls. All other systems have been reviewed and are negative for complaint. Vitals Vital Signs Recorded: 28Aug2022 09:53AM Heart Rate60, R Radial Wglbovlm423, RUE, Sitting Ipjuzoegu41, RUE, Sitting Height6 ft 2 in Aopohz166 lb BMI Oqfgeylfmy66.38 kg/m2 BSA Calculated2.27 Tobacco Usea) Yes Patient encouraged to stop using tobacco productsYes PHQ-2 #1. Over the last 2 weeks have you felt down, depressed or hopeless? (If yes, answer PHQ-9 below)No PHQ-2 #2. Over the last 2 weeks have you felt little interest or pleasure in doing things? (If yes,answer PHQ-9 below)No Physical Exam Constitutional: alert and in no acute distress. Neck: neck is supple, symm (more content not included)...[facility] Serum or plasma high density lipoprotein (HDL) cholesterol measurementOrdered By: Haile Membreno on 00-33-0554Zujgwbujpjg in HDL [Mass/Vol]40 mg/jC31-54DinyvvrpqTwin City HospitalComment on above:HDL CHOL ATP-III CLASSIFICATION Cardiovascular RiskHDL > or equal to 60 mg/dL LOWHDL < 40 mg/dL HIGHSerum or plasma total cholesterol/high density lipoprotein (HDL) cholesterol mass rat Ordered By: Haile Membreno on 50-02-2920Purijhukang.total/Cholesterol in HDL [Mass ratio]3.0 {ratio}<5.0Twin City HospitalTobacco Screening.on 78-86-1395Kjtob depression screening assessmentNoNorthwest Hospital [employer] 250 DO Work Phone: Tobacco use status CPHSa) [facility] [employer] 250 DO Work Phone: Tobacco Screening.[facility] [employer] 250 DO Work Phone: Triglyceride [Mass/volume] in Serum or PlasmaOrdered By: Haile Membreno on 35-07-7867Plysvducvcuk [Mass/Vol]76 mg/dL0-149Twin City HospitalComment on above:TRIG ATP III CLASSIFICATIONTRIG less than 150 mg/dL NormalTRIG 150-199 mg/dL Borderline highTRIG 200-500 mg/dL High TRIG greater than 500 mg/dL Very highStandard traceable to the Center for Disease Conrtrol and Prevention (CDC) test method.Screenson 17-31-6477Vaepqcc [id number]:127NormalJosé Holy Cross HospitalAmbulatory Visit Summaryon [id number] Visit Summary JENNY SUTTON :1970 Visit Date:07/09/2022 Ambulatory Visit Instructions Your Diagnosis ED (erectile dysfunction) BPH (benign prostatic hyperplasia) Family history of prostate cancer Tests Performed Urnls Dip Stick Auto w/o Microscopy POC 76579 Your Care Team Attending Physician - Piotr FISHMAN MD Primary Care Physician - Jeovanny Orellana MD This Is Your Medications List alfuzosin (alfuzosin 10 mg ER Tab) Contact prescribing physician if questions or concerns aspirin atorvastatin (atorvastatin 40 mg Tab) buprenorphine-naloxone (Suboxone) lisinopril (lisinopril 2.5 mg Tab) metoprolol (Toprol-XL) prasugrel (Effient 10 mg Tab) Procedures Performed Epidural injection of lumbar spine using fluoroscopic guidance (08/14/2011), ACDF, arthroscopy of knee, partial menisectomy, cervical discectomy, crpp right little finger, Epidural injection of lumbar spine using fluoroscopic guidance, Injection of facet joint using fluoroscopic guidance, insertionof coronary artery stents x2, repair of labrum right shoulder. What to do next You Need to Schedule the Following Appointments Follow Up with ALISHA GOMEZ, Piotr Tabor, EROS When: Only if needed Where: [facility] [address] , [place] [address]- [phone] Medications What How Much When Instructions Unchanged alfuzosin (alfuzosin 10 mg ER Tab) 1 Tablets By Mouth Every day 1 tab qAm Unchanged aspirin 81 Milligram By Mouth Every day Contact prescribing physician if questions or concerns Unchanged atorvastatin (atorvastatin 40 mg Tab) By Mouth Every day Contact prescribing physician ifquestions or concerns Unchanged buprenorphine-naloxone (Suboxone) Sublingual Every day Contact prescribing physician if questions or concerns Unchanged lisinopril (lisinopril 2.5 mg Tab) By Mouth Every day Contact prescribing physician if questions or concerns Unchanged metoprolol (Toprol-XL) 50 Milligram By Mouth Every day Contact prescribing physician if questions or concerns Unchanged prasugrel (Effient 10 mg Tab) 1 Tablets By Mouth Every day Contact prescribing physician if questions or concerns Test Results Urnls Dip Stick Auto w/o Microscopy POC 95621 (07/09/2022) Bilirubin Urine Dipstick - Negative Blood Urine Dipstick - Trace-intact Glucose Urine Dipstick - Negative Ketones Urine Dipstick - Negative Leukocytes Urine Dipstick - Negative Nitrite Urine Dipstick - Negative Protein Urine Dipstick - Negative Specific [place] Urine Dipstick - 1.020 Urine Appearance Urine Dipstick - Clear Urine Color Urine Dipstick - Yellow Urobilinogen Urine Dipstick - Normal 0.2-1 EU/dl pH Urine Dipstick - 6.5 Allergies No Known Allergies Problems Ongoing - Any problem that you are currently receiving treatment for. Arthritis Atrial fibrillation BPH (benign prostatic hyperplasia) Cervical disc disease ED (erectile dysfunction) Elbow pain Enlarged prostate Family history of prostate cancer Heart attack Heart disease Hematoma of groin Internal derangement of knee Knee pain Lumbar spondylosis Paresthesia Peyronie's disease Prostatitis Seizure Shoulder joint pain Shoulder pain Smoker Thoracic disc disorder Education Materials Erectile Dysfunction Erectile dysfunction (ED) is the inability to get or keep an erection in order to have sexual intercourse. ED is considered a symptom of an underlying disorder and is not considered a disease. ED mayinclude: ? Inability to get an erection. ? Lack of enough hardness of the erection to allow penetration. ? Loss of erection before sex is finished. What are the causes? This condition may be caused by: ? Physical causes, such as: ? Artery problems. This may include heart disease, high blood pressure, atherosclerosis, and diabetes. ? Hormonal problems, such as low testosterone. ? Obesity. ? Nerve problems. This may include back or pelvic injuries, multiple sclerosis, Parkinson's disease, spinal cord injury, and stroke. ? Certain medicines, such as: ? Pain relievers. ? Antidepressants. ? Blood pressure medicines and water pills (diuretics). ? Cancer medicines. ? Antihistamines. ? Muscle relaxants. ? Lifestyle factors, such as: ? Use of drugs such as marijuana, cocaine, or opioids. ? Excessive use of alcohol. ? Smoking. ? Lack of physical activity or exercise. ? Psychological causes, such as: ? Anxiety or stress. ? Sadness or depression. ? Exhaustion. ? Fear about sexual performance. ? Guilt. What are the signs or symptoms? Symptoms of this condition include: ? Inability to get an erection. ? Lack of enough hardness of the erection to allow penetration. ? Loss of the erection before sex is finished. ? Sometimes having normal erections, but with frequent unsatisfactory episodes. ? Low sexual satisfaction in either partner due to er (more content not included)...[facility] Educationon 07-09-2022 Patient EducationUrology Erectile Dysfunction Erectile dysfunction (ED) is the inability to get or keep an erection in order to have sexual intercourse. ED is considered a symptom of an underlying disorder and is not considered a disease. ED mayinclude: ? Inability to get an erection. ? Lack of enough hardness of the erection to allow penetration. ? Loss of erection before sex is finished. What are the causes? This condition may be caused by: ? Physical causes, such as: ? Artery problems. This may include heart disease, high blood pressure, atherosclerosis, and diabetes. ? Hormonal problems, such as low testosterone. ? Obesity. ? Nerve problems. This may include back or pelvic injuries, multiple sclerosis, Parkinson's disease, spinal cord injury, and stroke. ? Certain medicines, such as: ? Pain relievers. ? Antidepressants. ? Blood pressure medicines and water pills (diuretics). ? Cancer medicines. ? Antihistamines. ? Muscle relaxants. ? Lifestyle factors, such as: ? Use of drugs such as marijuana, cocaine, or opioids. ? Excessive use of alcohol. ? Smoking. ? Lack of physical activity or exercise. ? Psychological causes, such as: ? Anxiety or stress. ? Sadness or depression. ? Exhaustion. ? Fear about sexual performance. ? Guilt. What are the signs or symptoms? Symptoms of this condition include: ? Inability to get an erection. ? Lack of enough hardness of the erection to allow penetration. ? Loss of the erection before sex is finished. ? Sometimes having normal erections, but with frequent unsatisfactory episodes. ? Low sexual satisfaction in either partner due to erection problems. ? A curved penis occurring with erection. The curve may cause pain, or the penis may be too curved to allow for intercourse. ? Never having nighttime or morning erections. How is this diagnosed? This condition is often diagnosed by: ? Performing a physical exam to find other diseases or specific problems with the penis. ? Asking you detailed questions about the problem. ? Doing tests, such as: ? Blood tests to check for diabetes mellitus or high cholesterol, or to measure hormone levels. ? Other tests to check for underlying health conditions. ? An ultrasound exam to check for scarring. ? A test to check blood flow to the penis. ? Doing a sleep study at home to measure nighttime erections. How is this treated? This condition may be treated by: ? Medicines, such as: ? Medicine taken by mouth to help you achieve an erection (oral medicine). ? Hormone replacement therapy to replace low testosterone levels. ? Medicine that is injected into the penis. Your health care provider may instruct you how to give yourself these injections at home. ? Medicine that is delivered with a short applicator tube. The tube is inserted into the opening atthe tip of the penis, which is the opening of the urethra. A tiny pellet of medicine is put in the urethra. The pellet dissolves and enhances erectile function. This is also called MUSE (medicated urethral system for erections) therapy. ? Vacuum pump. This is a pump with a ring on it. The pump and ring are placed on the penis and usedto create pressure that helps the penis become erect. ? Penile implant surgery. In this procedure, you may receive: ? An inflatable implant. This consists of cylinders, a pump, and a reservoir. The cylinders can be inflated with a fluid that helps to create an erection, and they can be deflated after intercourse. ? A semi-rigid implant. This consists of two silicone rubber rods. The rods provide some rigidity. They are also flexible, so the penis can both curve downward in its normal position and become straight for sexual intercourse. ? Blood vessel surgery to improve blood flow to the penis. During this procedure, a blood vessel from a different part of the body is placed into the penis to allow blood to flow around (bypass) damaged or blocked blood vessels. ? Lifestyle changes, such as exercising more, losing weight, and quitting smoking. Follow these instructions at home: Medicines ? Take gagk-cad-jmsiugn and prescription medicines only as told by your health care provider. Do not increase the dosage without first discussing it with your health care provider. ? If you are using self-injections, do injections as directed by your health care provider. Make sure you avoid any veins that are on the surface of the penis. After giving an injection, apply pressure to the injection site for 5 minutes. ? Talk to your health care provider about how to prevent headaches while taking ED medicines. Thesemedicines may cause a sudden headache due to the increase in blood flow in your body. General instructions ? Exercise regularly, as directed by your health care provider. Work with your health care providerto lose weight, if needed. ? Do not use any products that contain nicotine or tobacco. 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 Pts previous DX: enlarged prostate, hematoma of groin, prostatitis. Dysuria: denies Incomplete bladder emptying: denies Hematuria: denies Frequency: denies Urgency: denies Nocturia: 1-2x Stream: strong, steady stream Leaking: denies Post void dripping: denies Wearing pads/ Depends: denies Urge incontinence: denies Stress incontinence: denies Incontinence without Sensory Awareness: denies Abdominal pain: denies Flank pain: denies Sexual complaints: pt states he can get hard but he is stating his penis is half the size as it used to be. pt states this has been going on for a few years now. History of Present Illness I have reviewed and verified the staff HPI to be accurate for this encounter. Review of Systems PHQ Score Initial Depression Screen Score: 0 ROS - Provider Constitutional: denies weight loss, denies hot flashes. Eyes: denies eye problems. Gastrointestinal: denies nausea, denies vomiting. Cardiovascular: denies chest pain or angina. Integumentary: no dryness Musculoskeletal: denies musculoskeletal symptoms. ENMT: denies otolaryngeal symptoms. Respiratory: no shortness of breath. Heme/Lymph: denies easy bleeding tendency, denies easy bruising tendency. Psychiatric: no confusion, no anxiety. Genitourinary: denies dysuria, denies hematuria, denies discharge, denies urinary frequency, deniesurinary hesitancy, denies nocturia, denies incontinence, denies genital sores, denies decreased libido, and denies erectile dysfunction. Physical Exam General Appearance: alert, no distress, well nourished, well developed male. Genitourinary: normal scrotum, normal testes, normal urethra, normal epididymis, normal vas deferens/spermatic cord. Flank Pain: none. Bladder: nonpalpable. Prostate: normal prostate, estimated weight 35 gms, no hard nodule observed. Assessment/Plan 1. ED (erectile dysfunction) (N52.9: Male erectile dysfunction, unspecified) Pt states that he is able to achieve an erection but his penis is 50% smaller than what it used to be. Pt states that this happened overnight. Pt has had 5 heart attacks. his penis shrank when he had his first mi. Educated pt that this is a vascular problem. Discussed using a vacuum device with a penile ring or TRIMIX injections to help. Will give pt a pamphlet for the Vacuum device IO today. 2. BPH (benign prostatic hyperplasia) (N40.0: Benign prostatic hyperplasia without lower urinary tract symptoms) IPSS 3 QOL 1 Overall pt states that he is not having any issues voiding. Pt wakes 1x at night and denies dysuria, or hematuria. UA is clear of infection. 3. Family history of prostate cancer (Z80.42: Family history of malignant neoplasm of prostate) Father PSA checked by Pt states that it has been a couple years since it was checked last. Will give pt a slip to get hisPSA checked. Follow-up With When Contact Information ALISHA GOMEZ, Piotr Tabor, URL Only if needed [facility] [address] [place] [address]- [phone] Additional Instructions: Patient Education Erectile Dysfunction I, Chaparrita Lee, personally scribed for Dr. Fishman on 07/09/2022 10:56:54. . Documentation recorded by the daljitibChaparrita velasquez, accurately reflects the services(s) I performed and decisions made by me. Problem List/Past Medical History Ongoing Arthritis Atrial fibrillation BPH (benign prostatic hyperplasia) Cervical disc disease ED (erectile dysfunction) Elbow pain Enlarged prostate Family history of prostate cancer Heart attack Heart disease Hematoma of groin Internal derangement of knee Knee pain Lumbar spondylosis Paresthesia Peyronie's disease Prostatitis Seizure Shoulder joint pain Shoulder pain Smoker Thoracic disc disorder Historical No qualifying data Procedure/Surgical History Epidural injection of lumbar spine using fluoroscopic guidance (08/14/2011), ACDF, arthroscopy of knee, partial menisectomy, cervical discectomy, crpp right little finger, Epidural injection of lumbar spine using fluoroscopic guidance, Injection of facet joint using fluoroscopic guidance, insertionof coronary artery stents x2, repair of labrum right shoulder. Medications alfuzosin 10 mg ER Tab, 10 mg= 1 tab(s), Oral, Daily, 3 refills, Not taking aspirin, 81 mg, Oral, Daily atorvastatin 40 mg Tab, Oral, Daily Effient 10 mg Tab, 10 mg= 1 tab(s), Oral, Daily lisinopril 2.5 mg Tab, Oral, Daily Suboxone, SubLingual, Daily Toprol-XL, 50 mg, Oral, Daily Allergies No Known Allergies Social History Alcohol - Denies Alcohol Use, 05/15/2015 Substance Abuse - Denies Substance Abuse, 05/15/2015 Tobacco 10 or more cigarettes (1/2 pack or more)/day in last 30 days, Smoker, current status unknown Tobacco Use:. Cigarettes, Yes, 07/09/2022 Family History Arthritis: M (more content not included)...[facility] Comment on above:Result Comment: Electronically Signed By: Piotr FISHMAN MD\.br\Date and Time Signed: 07/09/22 11:01 EDT\.br\Electronically Co-Signed By: Chaparrita Lee MA\.br\Date and Time Co-Signed: 07/09/22 10:57 EDTOffice Visit (Cardiology)on [id number]-up visitDiagnoses/Problems Assessed Atherosclerosis of [place] coronary artery of [place] heart without angina pectoris (414.01) (I25.10) History of DC (myocardial infarction) (412) (I25.2) anterior wall History of PTCA (V45.82) (Z98.61) Hyperlipidemia (272.4) (E78.5) Cardiomyopathy (425.4) (I42.9) Benign essential hypertension (401.1) (I10) Current smoker (305.1) (F17.200) 3/4 PPD Overweight with body mass index (BMI) of 29 to 29.9 in adult (278.02,V85.25) (E66.3,Z68.29) Orders Atherosclerosis of [place] coronary artery of [place] heart without angina pectoris, History of DC (myocardial infarction), History of PTCA Start: Prasugrel HCl - 5 MG Oral Tablet (Effient); TAKE 1 TABLET DAILY DIRECTED Hyperlipidemia Lipid Panel; Status:Active - Retrospective Authorization; Requested for:[id number]; Overweight with body mass index (BMI) of 29 to 29.9 in adult Healthy Weight Tips; Status:Complete - Retrospective Authorization; Done: [id number] Some eating tips that can help you lose weight.; Status:Complete - Retrospective Authorization; Done: [id number] SocHx: Current smoker Start: buPROPion HCl - 75 MG Oral Tablet; Take 1 tablet daily You need to stop smoking. Though it is not easy, more than half of all adult smokers have quit. We encourage you to write down all the reasons you should quit smoking and set a quit date for yourself. Ask us how we can help. You may also call 1-484-APTRNOW for free resources and assistance.; Status:Complete - Retrospective Authorization; Done: [id number] Tobacco Use Screening; Status:Complete; Done: [id number] Patient Instructions Please bring all medicines, vitamins, and herbal supplements with you when you come to the office. Prescriptions will not be filled unless you are compliant with your follow up appointments or have a follow up appointment scheduled as per instruction of your physician. Refills should be requested at the time of your visit. Decrease Effient to 5 mg daily Bupropion 75 mg daily for 12 weeks for smoking cessation. Follow up in [6 ] months Chief Complaint JENNY SUTTON is being seen for a 6 month follow-up of. 51-year-old gentleman who returns for 6-month follow-up and is doing very well he denies any cardiovascular complaints, angina or hospitalizations. He has extensive cardiac history with multiple MIs primarily involving the LAD diagonal bifurcation initially in 2009, with revascularization of the LAD diagonal branch bifurcation, repeat intervention in 2011 at [facility] with [place] angioplasty; followed by restenosis of diagonal branch with repeat PCI in August [address] Bazzi, followed by 2 episodes of stent thrombosis in October 15 and October 20, 2018 with repeat interventions performed by myself. Last catheterization in July 2019 revealed widely patent LAD stents, RCA stent, subtotal occlusion of a small diagonal branch treated conservatively Patient remains on appropriate guideline directed medical therapies as well as prasugrel since 2018. He still smoking we have counseled him extensively on smoking cessation and offered pharmacologic intervention etc. Recommendations: Obtain lipid panel, will initiate Wellbutrin 75 mg daily for 12 weeks for assistance with smoking cessation and follow-up otherwise in 6 months Surgical History Problems History of Cardiac catheterization Denied: History of Colonoscopy History of Knee surgery History of Percutaneous transluminal coronary angioplasty History of Shoulder surgery 12Mar2005 History of Spinal surgery neck surgery Past Medical History Problems History of abnormal electrocardiography (V12.59) (Z86.79) History of Reactive airways dysfunction syndrome (506.3) (J68.3) History of SOB (shortness of breath) on exertion (786.05) (R06.02) Current Meds Medication NameInstruction Aspirin Adult Low Strength 81 MG Oral Tablet Delayed ReleaseTake 1 tablet daily Atorvastatin Calcium 80 MG Oral Tablettake 1 tablet by mouth at bedtime Buprenorphine HCl-Naloxone HCl - 8-2 MG Sublingual Filmdissolve 1 film under the tongue once daily Furosemide 20 MG Oral TabletTake 1 tablet daily Lisinopril 5 MG Oral TabletTAKE ONE-HALF TABLET BY MOUTH DAILY Metoprolol Succinate ER 25 MG Oral Tablet Extended Release 24 HourTAKE 1 TABLET DAILY. Nitroglycerin 0.4 MG Sublingual Tablet SublingualPLACE TABLET UNDER THE TONGUE EVERY FIVE MINUTES FOR UP TO 3 (THREE) DOSES NEEDED FOR CHEST PAIN. CALL 911 IF PAIN PERSISTS Prasugrel HCl - 10 MG Oral TabletTAKE 1 TABLET BY MOUTH DAILY Patient did not bring medication list or bottles. Updated verbally with patient Allergies Medication No Known Drug Allergies Recorded By: Bell Miller; 02/07/2021 10:06:43 AM Social History Problems Consumes alcohol occasionally (V49.89) (Z78.9) Current smoker (305.1) (F17.200) 3/4 PPD Daily caffeine consumption, 2-3 servings a day No illicit drug use Review of Systems Constitutional: not feeling tired. Cardio (more content not included)...NormalUH TouchworksTobacco Screening.on [id number] use status CPHSa) Yes-[facility] 250 DO Work Phone: Tobacco Screening.YesNorthwest Hospital [facility] 250 DO Work Phone: Tobacco Screening.on [id number] depression screening assessmentNoNorthwest Hospital [facility]-[place] 250 DO Work Phone: Tobacco use status CPHSa) YesNorthwest Hospital [facility] [place] 250 DO Work Phone: PROGRESSon [phone] ID: [id number] Author: Josias Lewis Service: ? Author Type: Physician Type: Progress Notes Filed: 05/05/2019 10:39 PM Note Text: [facility] ECHOCARDIOGR[facility] Josias Lewis MD ECHOCARDIOGRAM REPORT [facility] Dr. Hutchinson PATIENT Jenny Sutton :1970 AGE:[age] year old INDICATION: SOB DATE: May 04, 2019 TECH:Samantha Ochoa RDCS BP 143/87 Ht 190.5 cm (6' 3 ) Wt 95.3 kg (210 lb) BMI 26.25 kg/m? REFERRING PHYSICIAN: Josias Lewis M.D. COMMENTS: M-MODE MEASUREMENTS CM LVID END DIASTOLE: 6.70 (3.5-5.7) LVID END SYSTOLE: 6.10 (1.5-3.9) % FRAC. SHORTENIN (28-44%) EJECTION FRACTION: Visual estimate 30% RIGHT VENTRICLE: 3.80 (0.9-2.6) IV SEPTUM: 0.70 (0.6-1.1) LV POSTERIOR WALL: 0.70 (0.6-1.1) LEFT ATRIUM: 3.50 (1.9-4.0) AORTIC ROOT: 3.10 (2.0-3.7) AORTIC CUSP: 2.60 (1.5-2.6) SHUNTS: No PERICARDIAL EFFUSION: No AORTIC VALVE PEAK VELOCITY: 1.04m/s INSUFF: LVOT: 2.30cm PULMONIC VALVE PEAK VELOCITY: 0.78m/s MITRAL VALVE PEAK VELOCITY: m/s MR: TRICUSPID VALVE PEAK VELOCITY: 0.35m/s RVSP: 12.84mmhg TR: 0.83 IMPRESSIONS: TECHNICAL QUALITY: Good LEFT VENTRICLE: Overall moderately reduced LV systolic function; estimated EF 30%. The LV is normal in thickness and severely dilated. There is stage 2 diastolic function. RIGHT VENTRICLE: Overall normal in dimension and normal in thickness. There is normal right ventricular contractility. RV systolic pressure 12 mmHg LEFT ATRIUM: Normal in size. RIGHT ATRIUM: Normal in size. AORTA: Aortic root is normal, AORTIC VALVE: Valve is normal and tricuspid. There is normal mobility. No vegetations are seen . Doppler systolic flow pattern is normal and there is no regurgitation noted. MITRAL VALVE: Valve is normal with normal mobility. No vegetations are seen. Doppler diastolic flow pattern is normal. There is mild regurgitation. TRICUSPID VALVE: Valve is well visualized and is normal. Doppler diastolic flow pattern is normal and there is mild regurgitation. PULMONIC VALVE: Valve is well visualized and is normal. There is no regurgitation noted. PERICARDIUM: There is no pericardial effusion. IVC: Normal with respiratory variation. SUMMARY: Overall Moderatel left ventricular systolic dysfunction with an estimated ejection fraction of 30 %. The left ventricle is normal in thickness and severely dilated. Color Flow Doppler interrogation reveals Mild mitral Regurgitation mild tricuspid regurgitation.Grade 2 diastolic dysfunction of left ventricle Josias Lewis M.D., [facility] [place] #: [phone] [place] #: [phone] [facility] [place] Vital Signs Date TimeVital SignValuePerforming FfenievbuUsgrcxrn56-75-0581 09:53-0400Body cmDannielle Membreno DO Work Phone: [facility]07-31-2025 09:53-0400 Body mass index (BMI) [Ratio]28.37 kg/d7TodlxroDannielle Membreno DO Work Phone: [facility]07-31-2025 09:53-0400 Body rqotxj806.25 kgDannielle Membreno DO Work Phone: [facility]07-31-2025 09:53-0400 Diastolic blood ybzyyqda94 mm[Hg]Dannielle Ybarradon DO Work Phone: [facility]07-31-2025 09:53-0400 Heart rate68 /minWiorlandonahun Shubham DO Work Phone: [facility]07-31-2025 09:53-0400 Systolic blood vudloqgc917 mm[Hg]Dannielle Membreno DO Work Phone: [facility]04-02-2024 15:20-0400 Body ooqozk779 cmWihelen Membreno DO Work Phone: [facility]04-02-2024 15:20-0400 Body mass index (BMI) [Ratio]29.66 kg/d6VepotfwDannielle Membreno DO Work Phone: [facility]04-02-2024 15:20-0400 Body .78 kgWihelen Membreno DO Work Phone: [facility]04-02-2024 15:20-0400 Diastolic blood nnyhbqiv51 mm[Hg]Dannielle Membreno DO Work Phone: [facility]04-02-2024 15:20-0400 Heart rate84 /minDannielle Membreno DO Work Phone: [facility]04-02-2024 15:20-0400 Systolic blood mm[Hg]Dannielle Membreno DO Work Phone: [facility]06-22-2023 09:53-0400 Body .96 cmDouglas Nahun Hoy Work Phone: [phone]-Harok [facility] DO Work Phone: [phone] 09:53-0400Body mass index (BMI) [Ratio] 28.38 kg/o2Hqtwder M Hoy Work Phone: [phone]-Wolkr [facility] DO Work Phone: [phone] 09:53-0400Body surface area Derived from formula2.27 n1Lkbfwrv M Hoy Work Phone: [phone]-Rjyhx [facility] DO Work Phone: 1(163) 245-761006-22-2023 09:53-0400Body rphdiq772.25 kgDouglas M Hoy Work Phone: [phone]-Aosri [facility] DO Work Phone: 1([phone]) [phone] 09:53-0400Diastolic blood joketwfp77 mm[Hg] Jeovanny M Hoy Work Phone: [phone]-Mgqla [facility] DO Work Phone: [phone] 09:53-0400Heart rate60 /minDouglas M Hoy Work Phone: [phone]-Ylwzt [facility] DO Work Phone: 1(497) 421-727906-22-2023 09:53-0400Systolic blood mm[Hg] Jeovanny M Hoy Work Phone: [phone]-Jqyxp [facility] DO Work Phone: 1([phone] 09:50-0400Blood Pressure LocationPauc [facility] ALISHA [facility]05-03-2023 09:50-0400Systolic blood ywiwlhyr60 mm[Hg]Piotr FISHMAN [facility]-14-2022 11:28-0500Body uycdpu912.96 cmDouglas M Hoy Work Phone: [phone]-Lpbpn [facility] DO Work Phone: [phone] 11:28-0500Body mass index (BMI) [Ratio]29.4 kg/z2Oechsey M Hoy Work Phone: [phone]-Teagh [facility] DO Work Phone: [phone] 123-798212-14-2022 11:28-0500Body surface area Derived from formula2.3 z3Vwpokuk M Hoy Work Phone: [phone]-Zfhid [facility] DO Work Phone: 1([phone] 11:28-0500Body .87 kgDouglas M Hoy Work Phone: [phone]-Oaxze [facility] DO Work Phone: [phone] 11:28-0500Diastolic blood ondyagea20 mm[Hg] Jeovanny M Hoy Work Phone: [phone]-Tehfg [facility] DO Work Phone: [phone] 11:28-0500Heart rate80 /minDouglas M Hoy Work Phone: [phone]-Vwcyf [facility] DO Work Phone: 1([phone] 11:28-0500Systolic blood sanumrhn655 mm[Hg] Jeovanny M Hoy Work Phone: [phone]-Tlqjr [facility] DO Work Phone: 1(548)[phone] 11:34-0400Body ejaedd477.96 cmDouglas M Hoy Work Phone: [phone]-Fadyp [facility] DO Work Phone: [phone] 11:34-0400Body mass index (BMI) [Ratio] 28.55 kg/q2Epsezmf M Hoy Work Phone: [phone]-Mtova [facility] DO Work Phone: 1(668)[phone] 11:34-0400Body surface area Derived from formula2.27 w1Ntyqyoa M Hoy Work Phone: [phone]-Jivnh [facility] DO Work Phone: 1(440)[phone] 11:34-0400Body njljqi377.88 kgDouglas M Hoy Work Phone: [phone]-Xidar [facility] DO Work Phone: [phone] 11:34-0400Diastolic blood ewqydtgw26 mm[Hg] Jeovanny M Hoy Work Phone: [phone]-Reiea [facility] DO Work Phone: 1(687) 129-626706-07-2022 11:34-0400Heart rate64 /minDzena Hobbs Hoy Work Phone: [phone]-Lcvcu [facility] DO Work Phone: 1(174) 470-249106-07-2022 11:34-0400Systolic blood sfavjthf973 mm[Hg] Jeovanny Hobbs Hoy Work Phone: [phone]-Trkkn [facility] DO Work Phone: Encounters Encounter DateEncounter Type[facility] ProviderFacilityStart: 10-06-2024 End: 47-35-4566Cfpitz outpatient visit 15 Daysinahun Ybarradon DO Work Phone: uh FirelandsComment on above:Atherosclerosis of mes[place] grande coronary artery of [place] heart without angina pectoris; History of PTCA; History of DC (myocardial infarction); Primary hypertension; Mixed hyperlipidemia; BMI 28.0-28.9,adult; Current smokerStart: 10-06-2024 End: 10-37-6751edlemqukynSLAUXHS [facility] AmbulatoryStart: 06-09-2023 End: 54-69-3311Djqhfa outpatient visit 25 Daysinahun Membreno DO Work Phone: uh FirelandsComment on above:Atherosclerosis of mes[place] grande coronary artery of [place] heart without angina pectoris; History of PTCA; Ischemic cardiomyopathy; Primary hypertension; Mixed hyperlipidemia; BMI 29.0-29.9,adult; Current smokerStart: 80-28-4728To RenewalDougjoel Hobbs Hoy Work Phone: [phone]-Jrazk [facility] DO Work Phone: Start: 14-28-0228mxgkhxhrhzEembulatoryDr. Dannielle Membreno Facility:[id number]: 27-79-8672[facility], Provider: Dannielle Membreno, Status: Pen, Time: 9:40 AMDzena Hobbs Hoy Work Phone: [phone]-Gvuzc [facility] DO Work Phone: Start: 43-86-0356Qmbkoz outpatient visit 15 minutes Jeovanny M Hoy Work Phone: [phone]-Wdqqm [facility] DO Work Phone: Start: 08-28-2022 End: 73-02-7864izofnxqiwlXxtxkkb M HoyFacility:[facility] Start: 08-28-2022 End: 72-60-3164gatlyxfechBF Jeovanny M Hoy Work Phone: [facility] Work Phone: Start: 08-28-2022 End: 73-47-5731Tvejlbo encounter procedureMD Jeovanny Hoy Work Phone: [facility] [place] Work Phone: Start: 31-38-0393Qz RenewalDouglas M Hoy Work Phone: [phone]-Waheu [facility] DO Work Phone: Start: 97-73-8449liydtvnqsuQI JEOVANNY HOY .Facility:H1 Start: 07-09-2022 End: 20-82-4388tfwpwdwxjsJgffeae R WATERSFacility:EU yStart: 07-09-2022 End: 01-34-7448Axoeoud encounter procedurePatricjosette FISHMAN [facility] Start: 49-30-2686mpbsfmigaqTP JEOVANNY HOY .Facility:H1 Start: 28-60-5746Og RenewalDouglas M Hoy Work Phone: [phone]-Lgdff [facility] DO Work Phone: Start: 73-01-9678lnvxffzhjoHt. Dannielle Membreno Facility:[id number]: 34-68-8544Ogltgd outpatient visit 25 minutesDouglas M Hoy Work Phone: [phone]-Btqvl [facility] DO Work Phone: Start: 13-83-4578Ja RenewalDouglas M Hoy Work Phone: [phone]-Sgluj [facility] DO Work Phone: Start: 83-54-2993Gp RenewalDouglas M Hoy Work Phone: [phone]-Cjuha [facility] DO Work Phone: Start: 79-72-8804Azhrpc outpatient visit 15 minutes Jeovanny M Hoy Work Phone: [phone]-Wtvmh [facility] DO Work Phone: Start: 88-62-7517NRWNVAzfjgxr M Hoy Work Phone: [phone]-Nzqzg [facility] DO Work Phone: Procedures DateProcedureProcedure DetailPerforming ClinicianStart: 17-84-6433Myktsgn of percutaneous transluminal coronary angioplastyHistory of PTCShawnee Membreno DO Work Phone: Start: 99-49-2043Cjhrbyoy injection of lumbar spine using fluoroscopic guidanceMgv Comment on above:L4-5ACDF 2PatricRepeatit Comment on above:C5-6arthroscopy of knee, partial menisectomy 3Patrick [employer] Comment on above:rightCardiac catheterizationDouglas M Hoy Work Phone: [phone] discectomy 4Patrick [employer] Comment on above:C5-C6crpp right little fingerPatrick [employer] Epidural injection of lumbar spine using fluoroscopic guidancePaPlures Technologies Comment on above:L3-4, L4-5, L5-B8Ilxifcb of percutaneous transluminal coronary angioplastyHistory of PTCADouglas M Hoy Work Phone: History of percutaneous transluminal coronary angioplastyHistory of PTCShawnee Membreno DO Work Phone: History of percutaneous transluminal coronary angioplastyHistory of PTCTainam S Shubham DO Work Phone: Injection of facet joint using fluoroscopic guidance Piotr FISHMAN Comment on above:lumbar facet injections L3-4, L4-5, L5-S8hjbklmkkm of coronary artery stents v9Dvkfwqv FISHMAN Operative procedure on kneeDouglas M Hoy Work Phone: Operative procedure on spinal structureDouglas M Hoy Work Phone: Comment on above:neck surgery;Percutaneous transluminal coronary angioplastyDouglas M Hoy Work Phone: repair of labrum right shoulderPatrick [employer] Repair of shoulderDouglas M Hoy Work Phone: Comment on above:12Mar2005;NEGATED: Highlighted row has not occurred!ColonoscopyDouglas M Hoy Work Phone: Plan of Treatment DateCare ActivityDetailAuthorStart: 10-10-2025 End: 65-55-8055Ttyhuet encounter itcqsxumi93/04/2026 9:10 AM EDT Office Visit [facility] [address] [place] [address] Dannielle Membreno DO [address] [facility] [address] [place] [address] [facility] [place]: 77-83-8322Jhtnekmrr vaccination Influenza Vaccine (#1)[facility]: 10[facility]2024 End: 14-35-0082Modnfyt aminotransferase [Enzymatic activity/volume] in Serum or Plasma by With P-5'-PAlanine Aminotransferase Lab Routine Mixed hyperlipidemia Expected: 10/06/2024 (Approximate), Expires: 10/06/2025[facility] Service Area Work Phone: Comment on above:Expected: 10/06/2024 (Approximate), Expires: 10/06/2025Start: 10-06-2024 End: 70-70-4011Jkkdkftyc aminotransferase [Enzymatic activity/volume] in Serum or Plasma by With P-5'-PAspartate Aminotransferase Lab Routine Mixed hyperlipidemia Expected: 10/06/2024 (Approximate), Expires: [facility]/2025[facility] Work Phone: Comment on above:Expected: 10/06/2024 (Approximate), Expires: 10/06/2025Start: 10-06-2024 End: 73-05-8316[place] 1996 panel - Serum or PlasmaLipid Panel Lab Routine Mixed hyperlipidemia Expected: 10/06/2024 (Approximate), Expires: 10/06/2025[facility] Work Phone: Comment on above:Expected: 10/06/2024 (Approximate), Expires: 10/06/2025Start: 06-14-2024 End: 08-68-6416Eafgjxk encounter klvyqkbxr83/08/2025 9:40 AM EDT Office Visit [facility] [address] [place] [address] Dannielle Membreno DO [address] [facility] [facility] [address] [place] [address] [facility]: 08-05-7838RAVYH-19 Vaccine ( season)COVID-19 Vaccine ( season)[facility] [place]: 34-80-4863Plaviypfv vaccinationInfluenza Vaccine (Season Ended) [facility]: 06-09-2023 End: 45-50-4228Bfvyxgk aminotransferase [Enzymatic activity/volume] in Serum or Plasma by With P-5'-PAlanine Aminotransferase Lab Routine Mixed hyperlipidemia Expected: 06/09/2023 (Approximate), Expires: 06/08/2024[facility] Work Phone: Comment on above:Expected: 06/09/2023 (Approximate), Expires: 06/08/2024Start: 06-09-2023 End: 96-68-9060Mburjmwbb aminotransferase [Enzymatic activity/volume] in Serum or Plasma by With P-5'-PAspartate Aminotransferase Lab Routine Mixed hyperlipidemia Expected: 06/09/2023 (Approximate), Expires: 06/08/2024[facility] Service Area Work Phone: Comment on above:Expected: 06/09/2023 (Approximate), Expires: 06/08/2024Start: 06-09-2023 End: 73-42-4577Suqnl metabolic 2000 panel - Serum or PlasmaBasic Metabolic Panel Lab Routine Primary hypertension Expected: 06/09/2023 (Approximate), Expires: 06/08/2024[facility] Work Phone: Comment on above:Expected: 06/09/2023 (Approximate), Expires: 06/08/2024Start: 06-09-2023 End: 69-86-6251Qlbvz 1996 panel - Serum or PlasmaLipid Panel Lab Routine Mixed hyperlipidemia Expected: 06/09/2023 (Approximate), Expires: 06/08/2024[facility] Work Phone: Comment on above:Expected: 06/09/2023 (Approximate), Expires: 06/08/2024Start: 80-21-4315DEK, Provider: Dannielle Membreno, Status: Pen, Time: 9:50 AMFUV, Provider: Dannielle Membreno, Status: Pen, Time: 9:50 [facility] Work Phone: Start: 71-26-4557JCNOK-19 Vaccine () COVID-19 Vaccine ()[facility] CenterStart: 90-15-6674BMK, Provider: Dannielle Membreno, Status: Pen, Time: 10:40 AMFUV, Provider: Dannielle Membreno, Status: Pen, Time: 10:40 AMMP-[facility] [facility] DO Work Phone: Start: 54-33-3324YMM, Provider: Dannielle Membreno, Status: Pen, Time: 11:10 AMFUV, Provider: Dannielle Membreno, Status: Pen, Time: 11:10 AM-[facility] 250 DO Work Phone: Start: 14-69-9766OOG, Provider: Dannielle Membreno, Status: Pen, Time: 11:20 AMFUV, Provider: Dannielle Membreno, Status: Pen, Time: 11:20 AM-[facility] 250 DO Work Phone: Start: 58-41-6337Jzlhzjnf specific antigen measurement PSA Prostate Cancer ScreeningUnCleveland Clinic [facility]: 2020 Zoster Vaccines (1 of 2)Zoster Vaccines (1 of 2)[facility]: 93-26-2534QHeE/Tdap/Td Vaccines (1 - Tdap)DTaP/Tdap/Td Vaccines (1 - Tdap)[facility]: 98-37-3431Zdqzmqviw B Vaccines (1 of 3 - 19+ 3-dose series)Hepatitis B Vaccines (1 of 3 - 19+ 3-dose series) [facility]: 47-01-6332Qxmrheafhbmt vaccination Pneumococcal Vaccine (1 of 2 - PCV)[facility]: 16-36-6579Sszciisx mellitus screeningDiabetes ScreeningUnCleveland Clinic [facility]: 31-09-3768Zvzesvary C screeningHepatitis C ScreeningUnCleveland Clinic [facility]: 83-60-7876Tmdxntqqkngh Vaccine: Pediatrics (0 to 5 Years) and At-Risk Patients (6 to 64 Years) (1 - PCV)Pneumococcal Vaccine: Pediatrics (0 to 5 Years) and At-Risk Patients (6 to 64 Years) (1 - PCV) [facility]: 92-07-0330NKH Vaccines (1 of 1 - Standard series)MMR Vaccines (1 of 1 - Standard series)[facility]: 06-39-2698Qlvorqofc B Vaccines (1 of 3 - 3-dose series)Hepatitis B Vaccines (1 of 3 - 3-dose series)[facility]: 53-44-9476PKS screeningHIV ScreeningUnCleveland Clinic [facility]: 53-73-9334Isose panelLipid PanelUnCleveland Clinic [facility]: 07-15-1971Medicare Annual Wellness VisitMedicare Annual Wellness Visit (AWV) [facility]: 00-18-4703Blfcniccc for malignant neoplasm of colonSamaritan North Health Center Immunizations Immunization DateImmunizationNotesCare BerhhdplHfgwlkqz55-17-4027ihhvpylgy, injectable, quadrivalent, preservative freeDouglas M Hoy Work Phone: [facility] CenterCom[facility] on above: Series:13-95-5226huetlcigp virus vaccine, unspecified formulationDannielle Ybarradon DO Work Phone: [facility] Work Phone: [phone]knwmr virus vaccine, unspecified formulationPatrick [employer] [facility]ery11-18-2021influenza, injectable, quadrivalent, preservative freeDouglas M Hoy Work Phone: [phone]-[place]dlCar[place] [address] DO Work Phone: [phone]-NoS-1 (COVID-19) mRNA BNT-162b2 vax Piotr [employer] [facility]06-03-2021SARS-CoV-2 (COVID-19) mRNA BNT-162b2 vaxPatrick [employer] [facility] on above:Result Comment: 2022-07-09: NVA9871-05-0732kztqbofax virus vaccine, unspecified formulationPatrick [employer] [facility] Centery10-14-2019influenza, injectable, quadrivalent, preservative freeDouglas M Hoy Work Phone: [phone]-Rbwbd [facility] DO Work Phone: [phone]) [phone]xpmo virus vaccine, live, attenuated, for intranasal usePatrick FISHMAN [facility] Acuudcoj95-59-5603otivhayvp virus vaccine, unspecified formulationJeovanny Orellana Work Phone: [phone]-Hkksq [facility] DO Work Phone: 1(459) [phone]dac virus vaccine, unspecified formulationJeovanny Orellana Work Phone: [phone]-[facility]vLu[facility] [address] DO Work Phone: Payers DatePayer CategoryPayerWills Eye Hospitaly ID2024MedicaidMEDICAID [id number] [id number] [id number] [id number] 2022Medicare [id number] [id number] 1971 [id number] 2.840.1.898644.3.57[id number] 2..0.1.964554.3.57[id number] 2..840.1.704537.3.57[id number] 2..840.1.413003.3.57[id number] 2..0.1.199271.3.579.2.1244 1960Self-payMedicaidParamount Advantage [id number] 2..840.1.529850.3.579.2.531 Social History DateTypeDetailFacilityStart: 98-81-3619Glecuti smokerCurrent smokerW[facility]thington Medical Center [address] DO Work Phone: Comment on above:3/4 PPD;a beer here or there;2-3 serving daily;Start: 94-23-6833Ejovtsw smoking statusHeavy tobacco smoker (finding)[facility] CenteryStart: 76-01-4780Rzzoxpo smoking statusSmoker (finding)[facility]art: 33-84-6662Fiq [facility] At [facility]: 19-92-5362Bsf [facility]igned At [facility] Hospitaltart: 03-09-1985 End: 05-69-4232Rikdwpu smoking status NHISSmokes tobacco dailyUnHarrison Community HospitalStart: 85-34-9019Rmjklkw of tobacco useCigarette Smoker [facility] Work Phone: Start: 06-09-2023 End: 48-57-6204Ggmsvcn use and exposureSmokeless tobacco non-userUnHarrison Community Hospital Work Phone: Start: 06-09-2023 End: 86-33-4443Cethznb intakeLifetime non-drinker (finding)[facility] Work Phone: Start: 68-52-1600Fzn Assigned At BirthNot on file [facility] Work Phone: Start: 05-30-2023 End: 86-16-7395Mcauzpvd to SARS-CoV-2 (event)Not sureSamaritan North Health CenterStart: 36-99-5189SosWzpqHlunjofjqb [facility] Equipment Procedure CodeEquipment CodeEquipment Original TextEquipment IdentifierDatesCL STENT MIGUEL 3.0 X 12FDAStart: 56-52-9299EJ STENT MIGUEL 4.0 X 26FDAStart: 31-26-1962CJ CLOSURE DEVICE ANGIOSEAL 6FFDAStart: 77-51-1351II STENT MADELINE 2.75 X 18FDAStart: 11-82-0725KA STENT MADELINE 3.0 X 38FDAStart: 68-08-2084BQ CLOSURE DEVICE ANGIOSEAL 6FFDAStart: 10-20-2018 Functional Status TtiqAgldxszkxrXojaccZjzekdqz52-71-4309Upagljfnjo StatusN/AExec[facility] Clinical Notes 07-09-2022 to 10-06-2024 Note Date & WvesAqysNpgtkciw59-61-4641 History of Present illness Narrative* Dannielle Membreno, DO - 10/06/2024 9:50 AM EDT Chief Complaint Patient presents with Annual Exam 1 year follow up for Atherosclerosis of [place] coronary artery of [place] heart without angina pectoris Subjective Jenny Sutton is a 54 y.o. male 54-year-old gentleman returns for annual cardiovascular follow-up, he is doing well he denies any cardiovascular events, complaints or nitrate usage or hospitalizations. He has discontinued smoking with the assistance of nicotine patches and now is transitioned over to Chantix. We continue to follow him for extensive cardiovascular history with prior MIs and PCI as delineatedbelow, hyperlipidemia and hypertension and former tobacco abuse. Last heart catheterization 2019 revealed widely patent LAD diagonal branch stents and RCA stents. He has an extensive history of prior MIs involving LAD diagonal branch details of which are noted in my last note in February 2022 with multiple interventions including stent to different stent thrombosis events. Fortunately the stents as of 2020 remain widely patent on current therapies including DAPT that is ongoing. Recommendations: Continue current therapies, follow-up in 1 year, obtain lipid and liver function tests Review of Systems All other systems reviewed and are negative. Vitals: 10/06/24 0953 BP: 124/76 BP Location: Left arm Patient Position: Sitting Pulse: 68 Weight: 100 kg (221 lb) Height: 1.88 m (6' 2 ) Objective Physical Exam Constitutional: Appearance: Normal appearance. HENT: Nose: Nose normal. Neck: Vascular: No carotid bruit. Cardiovascular: Rate and Rhythm: Normal rate. Pulses: Normal pulses. Heart sounds: Normal heart sounds. Pulmonary: Effort: Pulmonary effort is normal. Abdominal: General: Bowel sounds are normal. Palpations: Abdomen is soft. Musculoskeletal: General: Normal range of motion. Cervical back: Normal range of motion. Right lower leg: No edema. Left lower leg: No edema. Skin: General: Skin is warm and dry. Neurological: General: No focal deficit present. Mental Status: He is alert. Psychiatric: Mood and Affect: Mood normal. Behavior: Behavior normal. Thought Content: Thought content normal. Judgment: Judgment normal. Allergies Brilinta [ticagrelor] Current Medications Current Outpatient Medications Medication Instructions atorvastatin (LIPITOR) 80 mg, oral, Nightly buprenorphine-naloxone (Suboxone) 8-2 mg SL film dissolve 1 film under the tongue once daily clopidogrel (PLAVIX) 75 mg, oral, Daily furosemide (LASIX) 20 mg, oral, Daily lisinopril 2.5 mg, oral, Daily metoprolol succinate XL (TOPROL-XL) 25 mg, oral, Daily nicotine (Nicoderm CQ) 14 mg/24 hr patch 1 patch, transdermal, Every 24 hours nicotine (Nicoderm CQ) 21 mg/24 hr patch 1 patch, transdermal, Every 24 hours nicotine (Nicoderm CQ) 7 mg/24 hr patch 1 patch, transdermal, Every 24 hours nitroglycerin (Nitrostat) 0.[address] TABLET UNDER THE TONGUE EVERY FIVE MINUTES FOR UP TO 3 (THREE) DOSES NEEDED FOR CHEST PAIN. CALL 911 IF PAIN PERSISTS varenicline tartrate (Chantix ZARINA) 0.5 mg (11)- 1 mg (42) tablet DIRECTED EVERY DAY and then TWICE DAILY Assessment/Plan 1. Atherosclerosis of [place] coronary artery of [place] heart without angina pectoris Follow Up In Cardiology 2. History of PTCA 3. History of DC (myocardial infarction) 4. Primary hypertension 5. Mixed hyperlipidemia 6. BMI 28.0-28.9,adult 7. Current smoker Scribe Attestation By signing my name below, I, Indu Ponce LPN , Scribe attest that this documentation has been prepared under the direction and in the presence of Alayna Membreno DO. Provider Attestation - Scribe documentation All medical record entries made by the Scribe were at my direction and personally dictated by me. Ihave reviewed the chart and agree that the record accurately reflects my personal performance of the history, physical exam, discussion and plan. documented in this encounterSamaritan North Health Center Work Phone: [phone] Instructions* Patient Instructions* Indu Watkins LPN - 10/06/2024 9:50 AM EDT Please bring all medicines, vitamins, and herbal supplements with you when you come to the office. Prescriptions will not be filled unless you are compliant with your follow up appointments or have a follow up appointment scheduled as per instruction of your physician. Refills should be requested at the time of your visit. BMI was above normal measurement. Current weight: 100 kg (221 lb) Weight change since last visit (-) denotes wt loss -10 lbs Weight loss needed to achieve BMI 25: 26.7 Lbs Weight loss needed to achieve BMI 30: -12.2 Lbs Provided instructions on dietary changes Provided instructions on exercise. * Attachments The following attachments cannot be sent through Care Everywhere. * Quitting smoking (Slovak) * Heart Healthy Diet ([place]) [facility] Phone: [phone]) 596-862204-02-2024 History of Present illness Narrative* Dannielle Membreno, DO - 06/09/2023 3:10 PM EDT Subjective Jenny Sutton is a 52 y.o. male Chief Complaint Follow-up 52-year-old gentleman returns for follow-up he is doing well. He denies any cardiovascular events, complaints, nitrate usage or hospitalizations. He still smoking, we have counseled him for 5 minutestoday on smoking cessation he is actually asking for assistance with NicoDerm patches and were happy to provide assistance and counseling and prescription Last heart catheterization 2019 revealed widely patent LAD diagonal branch stents and RCA stents. He has an extensive history of prior MIs involving LAD diagonal branch details of which are noted in my last note in February 2022 with multiple interventions including stent to different stent thrombosis events. Fortunately the stents as of 2019 remain widely patent on current therapies including DAPT that is ongoing. He is only on aspirin currently with complaints of bruising and ecchymoses. Based on recent data and literature, I would actually switch to clopidogrel 75 daily, discontinue aspirin, will provide NicoDerm patch, follow-up otherwise in 1 year Review of Systems All other systems reviewed and are negative. Vitals: 06/09/23 1520 BP: 126/88 BP Location: Left arm Patient Position: Sitting Pulse: 84 Weight: 105 kg (231 lb) Height: 1.88 m (6' 2 ) Objective Physical Exam Constitutional: Appearance: Normal appearance. HENT: Nose: Nose normal. Neck: Vascular: No carotid bruit. Cardiovascular: Rate and Rhythm: Normal rate. Pulses: Normal pulses. Heart sounds: Normal heart sounds. Pulmonary: Effort: Pulmonary effort is normal. Abdominal: General: Bowel sounds are normal. Palpations: Abdomen is soft. Musculoskeletal: General: Normal range of motion. Cervical back: Normal range of motion. Right lower leg: No edema. Left lower leg: No edema. Skin: General: Skin is warm and dry. Neurological: General: No focal deficit present. Mental Status: He is alert. Psychiatric: Mood and Affect: Mood normal. Behavior: Behavior normal. Thought Content: Thought content normal. Judgment: Judgment normal. Allergies Brilinta [ticagrelor] Current Medications Current Outpatient Medications: atorvastatin (Lipitor) 80 mg tablet, Take 1 tablet (80 mg) by mouth once daily at bedtime., Disp: ,Rfl: buprenorphine-naloxone (Suboxone) 8-2 mg SL film, dissolve 1 film under the tongue once daily, Disp: , Rfl: furosemide (Lasix) 20 mg tablet, Take 1 tablet (20 mg) by mouth once daily., Disp: 90 tablet, Rfl: 2 lisinopril 5 mg tablet, Take 0.5 tablets (2.5 mg) by mouth once daily., Disp: 45 tablet, Rfl: 3 metoprolol succinate XL (Toprol-XL) 25 mg 24 hr tablet, Take 1 tablet (25 mg) by mouth once daily.,Disp: , Rfl: nitroglycerin (Nitrostat) 0.4 mg SL tablet, PLACE TABLET UNDER THE TONGUE EVERY FIVE MINUTES FOR UPTO 3 (THREE) DOSES NEEDED FOR CHEST PAIN. CALL 911 IF PAIN PERSISTS, Disp: , Rfl: Assessment/Plan 1. Atherosclerosis of mes[place] grande coronary artery of [place] grande heart without angina pectoris 2. History of PTCA 3. Ischemic cardiomyopathy 4. Primary hypertension 5. Mixed hyperlipidemia 6. BMI 29.0-29.9,adult 7. Current smoker Scribe Attestation By signing my name below, I, Otilia Tyler LPN attest that this documentation has been prepared under the direction and in the presence of Alayna Membreno DO. Provider Attestation - Scribe documentation All medical record entries made by the Scribe were at my direction and personally dictated by me. Ihave reviewed the chart and agree that the record accurately reflects my personal performance of the history, physical exam, discussion and plan. documented in this [facility] Work Phone: 1(515) 490-473504-02-2024 Instructions* Patient Instructions* Indu Watkins LPN - 06/09/2023 3:10 PM EDT Please bring all medicines, vitamins, and herbal supplements with you when you come to the office. Prescriptions will not be filled unless you are compliant with your follow up appointments or have a follow up appointment scheduled as per instruction of your physician. Refills should be requested at the time of your visit. BMI was above normal measurement. Current weight: 105 kg (231 lb) Weight change since last visit (-) denotes wt loss 10 lbs Weight loss needed to achieve BMI 25: 36.7 Lbs Weight loss needed to achieve BMI 30: -2.2 Lbs Provided instructions on dietary changes Provided instructions on exercise Advised to Increase physical activity. documented in this [facility] Work Phone: 1(351) 441-863705-03-2023 Evaluation + Plan note Diagnostic Tests Pending * PSA Total 07/09/22 [facility] [place] 05-03-2023 Hospital Discharge instructions Patient Education 07/09/2022 10:50:32 Erectile Dysfunction Erectile Dysfunction Erectile dysfunction (ED) is the inability to get or keep an erection in order to have sexual intercourse. ED is considered a symptom of an underlying disorder and is not considered a disease. ED mayinclude: Inability to get an erection. Lack of enough hardness of the erection to allow penetration. Loss of erection before sex is finished. What are the causes? This condition may be caused by: Physical causes, such as: ?Artery problems. This may include heart disease, high blood pressure, atherosclerosis, and diabetes. ?Hormonal problems, such as low testosterone. ?Obesity. ?Nerve problems. This may include back or pelvic injuries, multiple sclerosis, Parkinson's disease,spinal cord injury, and stroke. Certain medicines, such as: ?Pain relievers. ?Antidepressants. ?Blood pressure medicines and water pills (diuretics). ?Cancer medicines. ?Antihistamines. ?Muscle relaxants. Lifestyle factors, such as: ?Use of drugs such as marijuana, cocaine, or opioids. ?Excessive use of alcohol. ?Smoking. ?Lack of physical activity or exercise. Psychological causes, such as: ?Anxiety or stress. ?Sadness or depression. ?Exhaustion. ?Fear about sexual performance. ?Guilt. What are the signs or symptoms? Symptoms of this condition include: Inability to get an erection. Lack of enough hardness of the erection to allow penetration. Loss of the erection before sex is finished. Sometimes having normal erections, but with frequent unsatisfactory episodes. Low sexual satisfaction in either partner due to erection problems. A curved penis occurring with erection. The curve may cause pain, or the penis may be too curved toallow for intercourse. Never having nighttime or morning erections. How is this diagnosed? This condition is often diagnosed by: Performing a physical exam to find other diseases or specific problems with the penis. Asking you detailed questions about the problem. Doing tests, such as: ?Blood tests to check for diabetes mellitus or high cholesterol, or to measure hormone levels. ?Other tests to check for underlying health conditions. ?An ultrasound exam to check for scarring. ?A test to check blood flow to the penis. Doing a sleep study at home to measure nighttime erections. How is this treated? This condition may be treated by: Medicines, such as: ?Medicine taken by mouth to help you achieve an erection (oral medicine). ?Hormone replacement therapy to replace low testosterone levels. ?Medicine that is injected into the penis. Your health care provider may instruct you how to give yourself these injections at home. ?Medicine that is delivered with a short applicator tube. The tube is inserted into the opening at the tip of the penis, which is the opening of the urethra. A tiny pellet of medicine is put in the urethra. The pellet dissolves and enhances erectile function. This is also called MUSE (medicated urethral system for erections) therapy. Vacuum pump. This is a pump with a ring on it. The pump and ring are placed on the penis and used to create pressure that helps the penis become erect. Penile implant surgery. In this procedure, you may receive: ?An inflatable implant. This consists of cylinders, a pump, and a reservoir. The cylinders can be inflated with a fluid that helps to create an erection, and they can be deflated after intercourse. ?A semi-rigid implant. This consists of two silicone rubber rods. The rods provide some rigidity. They are also flexible, so the penis can both curve downward in its normal position and become straight for sexual intercourse. Blood vessel surgery to improve blood flow to the penis. During this procedure, a blood vessel froma different part of the body is placed into the penis to allow blood to flow around (bypass) damaged or blocked blood vessels. Lifestyle changes, such as exercising more, losing weight, and quitting smoking. Follow these instructions at home: Medicines Take taea-hin-oncjlbs and prescription medicines only as told by your health care provider. Do not increase the dosage without first discussing it with your health care provider. If you are using self-injections, do injections as directed by your health care provider. Make sureyou avoid any veins that are on the surface of the penis. After giving an injection, apply pressureto the injection site for 5 minutes. Talk to your health care provider about how to prevent headaches while taking ED medicines. These medicines may cause a sudden headache due to the increase in blood flow in your body. General instructions Exercise regularly, as directed by your health care provider. Work with your health care provider to lose weight, if needed. Do not use any products that contain nicotine or tobacco. These products include cigarettes, chewing tobacco, and vaping devices, such as e-cigarettes. If you need help quitting, ask your health careprovider. Before using a vacuum pump, read the instructions that come with the pump and discuss any questionswith your health care provider. Keep all follow-up visits. This is important. Contact a health care provider if: You feel nauseous. You are vomiting. You get sudden headaches while taking ED medicines. You have any concerns about your sexual health. Get help right away if: You are taking oral or injectable medicines and you have an erection that lasts longer than 4 hours. If your health care provider is unavailable, go to the nearest emergency room for evaluation. An erection that lasts much longer than 4 hours can result in permanent damage to your penis. You have severe pain in your groin or abdomen. You develop redness or severe swelling of your penis. You have redness spreading at your groin or lower abdomen. You are unable to urinate. You experience chest pain or a rapid heartbeat (palpitations) after taking oral medicines. These symptoms may represent a serious problem that is an emergency. Do not wait to see if the symptoms will go away. Get medical help right away. Call your local emergency services (911 in the [place] Do not drive yourself to the hospital. Summary Erectile dysfunction (ED) is the inability to get or keep an erection during sexual intercourse. This condition is diagnosed based on a physical exam, your symptoms, and tests to determine the cause. Treatment varies depending on the cause and may include medicines, hormone therapy, surgery, or a vacuum pump. You may need follow-up visits to make sure that you are using your medicines or devices correctly. Get help right away if you are taking or injecting medicines and you have an erection that lasts longer than 4 hours. This information is not intended to replace advice given to you by your health care provider. Make sure you discuss any questions you have with your health care provider. Document Revised: 05/22/2021 Document Reviewed: 05/22/2021 [employer] Patient Education 2022 [employer]. Follow Up Care 05/16/2022 10:55:31 With:ALISHA GOMEZ, Piotr Tabor, URL Address: [facility] [address], [place] [phone] When: only if needed [facility] Evaluation noteNo assessment information available [facility] Work Phone: Evaluation note* Diagnosis Atherosclerosis of mes[place] grande coronary artery of [place] heart without angina pectoris History of PTCA Postsurgical percutaneous transluminal coronary angioplasty status Ischemic cardiomyopathy Other specified forms of chronic ischemic heart disease Primary hypertension Unspecified essential hypertension Mixed hyperlipidemia BMI 29.0-29.9,adult Current smoker documented in this encounter [facility] Work Phone: Evaluation note* Diagnosis Atherosclerosis of [place] grande coronary artery of [place] heart without angina pectoris History of PTCA Postsurgical percutaneous transluminal coronary angioplasty status History of DC (myocardial infarction) Old myocardial infarction Primary hypertension Unspecified essential hypertension Mixed hyperlipidemia BMI 28.0-28.9,adult Current smoker documented in this encounter [facility] Work Phone: Hospital course Narrative No data available for this section [facility] Progress note No data available for this section [facility] Reason for referral (narrative)* Consultation (Routine) - AuthorizedSpecialtyDiagnoses / ProceduresReferred By ContactReferred To ContactCardiology Diagnoses Atherosclerosis of mes[place] grande coronary artery of [place] heart without angina pectoris Procedures Follow Up In Cardiology Dannielle Membreno DO [address] [facility] [address] [place] [address] Dannielle Membreno DO [address] [facility] [address], [facility] [address] [place] [address] Referral IDStatusReasonStart DateExpiration DateVisits RequestedVisits [id number]/ [facility] Work Phone: Summary Purpose Family History No Family History Records FoundUnknown Family Member Name Dates Details Family history of malignant neoplasm of prostate: Father(V16.42, Z80.42) Status:ActiveS/P CABG (coronary artery bypass graft): Father(V45.81, Z95.1) Status:ActiveFamily history of acute myocardial infarction: Mother, Father (V17.3, Z82.49) Status:Active Unknown Family Member Name Dates Details Family history of acute myoc ardial infarction: Mother, Father(V17.3, Z82.49) Status:ActiveS/P CABG (coronary artery bypass graft): Father(V45.81, Z95.1) Status:ActiveFamily history of malignant neoplasm of prostate: Father(V16.42, Z80.42) Status:Active Unknown Family Member Name Dates Details Family history of acute myoc ardial infarction: Mother, Father(V17.3, Z82.49) Status:ActiveS/P CABG (coronary artery bypass graft): Father(V45.81, Z95.1) Status:ActiveFamily history of malignant neoplasm of prostate: Father(V16.42, Z80.42) Status:Active Unknown Family Member Name Dates Details Family history of malignant neoplasm of prostate: Father(V16.42, Z80.42) Status:ActiveS/P CABG (coronary artery bypass graft): Father(V45.81, Z95.1) Status:ActiveFamily history of acute myocardial infarction: Mother, Father (V17.3, Z82.49) Status:Active Unknown Family Member Name Dates Details Family history of acute myoc ardial infarction: Mother, Father(V17.3, Z82.49) Status:ActiveS/P CABG (coronary artery bypass graft): Father(V45.81, Z95.1) Status:ActiveFamily history of malignant neoplasm of prostate: Father(V16.42, Z80.42) Status:Active Unknown Family Member Name Dates Details Family history of acute myoc ardial infarction: Mother, Father(V17.3, Z82.49) Status:ActiveS/P CABG (coronary artery bypass graft): Father(V45.81, Z95.1) Status:ActiveFamily history of malignant neoplasm of prostate: Father(V16.42, Z80.42) Status:Active Unknown Family Member Name Dates Details Family history of malignant neoplasm of prostate: Father(V16.42, Z80.42) Status:ActiveS/P CABG (coronary artery bypass graft): Father(V45.81, Z95.1) Status:ActiveFamily history of acute myocardial infarction: Mother, Father (V17.3, Z82.49) Status:Active Unknown Family Member Name Dates Details Family history of acute myoc ardial infarction: Mother, Father(V17.3, Z82.49) Status:ActiveS/P CABG (coronary artery bypass graft): Father(V45.81, Z95.1) Status:ActiveFamily history of malignant neoplasm of prostate: Father(V16.42, Z80.42) Status:Active Unknown Family Member Name Dates Details Family history of acute myoc ardial infarction: Mother, Father(V17.3, Z82.49) Status:ActiveS/P CABG (coronary artery bypass graft): Father(V45.81, Z95.1) Status:ActiveFamily history of malignant neoplasm of prostate: Father(V16.42, Z80.42) Status:Active Relationship Condition Age at Onset Recorded Date/T cornel Not Specified Atherosclerosis of coronary artery Unkno wn HypertensionUnknownMyocardial infarctionUnknownfatherAtherosclerosis of coronary arteryUnknownMalignant neoplasm of prostateUnknownChronic obstructive pulmonary diseaseUnknownPulmonary emphysemaUnknownbrotherMotor vehicle accidentUnknown brotherFibrosis of lungUnknownUnknown Family Member Name Dates Details Family history of acute myoc ardial infarction: Mother, Father(V17.3, Z82.49) Status:ActiveS/P CABG (coronary artery bypass graft): Father(V45.81, Z95.1) Status:ActiveFamily history of malignant neoplasm of prostate: Father(V16.42, Z80.42) Status:Active Advance Directives No Advanced Directives Records Found Advance Directive Response Recorded Date/ Time Advance Directives No November 06, 2017 10:38am Chief Complaint * OVERDUE NEEDS REFILLS. * 50-year-old gentleman who returns for 6-month follow-up. He is doing well he has no cardiovascular complaints. He denies angina or nitrate usage or hospitalizations. His cardiac history dates back [id number] with initially high lateral ST elevation DC with thrombectomy and PCI of the LAD and diagonal b ranch bifurcation, with repeat intervention in 2011 at [facility] with Cutting Balloon angioplasty of the LAD and diagonal branch; followed by restenosis of the diagonal branch with repeat PCI with Dr. Ellison in August 2018; followed by 2 episodes of stent thrombosis in October 15 and October 20, 2018 with repeat revascularization is performed by myself. Last heart catheterization in July 2019 revealed a widely patent LAD stents, RCA stent, subtotal occlusion of small diagonal branch that we treated conservatively. * Patient remains on appropriate guideline directed medical therapies and continues with prasugrel, he has been free of any acute coronary syndrome since 2019. * Recommendations, obtain lipid panel, high-sensitivity CRP, continue with long- term DAPT, follow-up in 6 months * OVERDUE NEEDS REFILLS. * 50-year-old gentleman who returns for 6-month follow-up. He is doing well he has no cardiovascular complaints. He denies angina or nitrate usage or hospitalizations. His cardiac history dates back [id number] with initially high lateral ST elevation DC with thrombectomy and PCI of the LAD and diagonal b ranch bifurcation, with repeat intervention in 2011 at [facility] with Cutting Balloon angioplasty of the LAD and diagonal branch; followed by restenosis of the diagonal branch with repeat PCI with Dr. Ellison in August 2018; followed by 2 episodes of stent thrombosis in October 15 and October 20, 2018 with repeat revascularization is performed by myself. Last heart catheterization in July 2019 revealed a widely patent LAD stents, RCA stent, subtotal occlusion of small diagonal branch that we treated conservatively. * Patient remains on appropriate guideline directed medical therapies and continues with prasugrel, he has been free of any acute coronary syndrome since 2019. * Recommendations, obtain lipid panel, high-sensitivity CRP, continue with long- term DAPT, follow-up in 6 months * JENNY SUTTON is being seen for a 6 month follow-up of. * 51-year-old gentleman who returns for 6-month follow-up and is doing very well he denies any cardiovascular complaints, angina or hospitalizations. He has extensive cardiac history with multiple MIs primarily involving the LAD diagonal bifurcation initially in 2009, with revascularization of the LAD diagonal branch bifurcation, repeat intervention in 2011 at [facility] with Cutting Balloon angioplasty; followed by restenosis of diagonal branch with repeat PCI in August [address] Bazzi, followed by 2 episodes of stent thrombosis in October 15 and October 20, 2018 with repeat interventions performed by myself. * Last catheterization in July 2019 revealed widely patent LAD stents, RCA stent, subtotal occlusion of a small diagonal branch treated conservatively * Patient remains on appropriate guideline directed medical therapies as well as prasugrel since 2019. He still smoking we have counseled him extensively on smoking cessation and offered pharmacologic intervention etc. * Recommendations: Obtain lipid panel, will initiate Wellbutrin 75 mg daily for 12 weeks for assistance with smoking cessation and follow-up otherwise in 6 months Chief Complaint and Reason for Visit Chief Complaint E78.5 Additional Source Comments (unrecognized sect ion and content) No Status Records FoundNo Status Records FoundNo Status Records FoundNo Status Records FoundNo Status Records FoundNo Status Records FoundNo Status Records Found INFORMATION SOURCE (unrecogn ized section and content) DATE CREATED AUTHOR 05/06/2019 [facility] DATE CREATED AUTHOR AUTHOR'S ORGANIZ ATION 07/11/2022 [facility] DATE CREATED AUTHOR AUTHOR'S ORGANIZ ATION 07/19/2022 [facility] DATE CREATED AUTHOR AUTHOR'S ORGANIZ ATION 08/29/2022 [facility] DATE CREATED AUTHOR AUTHOR'S ORGANIZ ATION 08/29/2022 [facility] DATE CREATED AUTHOR AUTHOR'S ORGANIZ ATION 09/14/2022 [facility] DATE CREATED AUTHOR AUTHOR'S ORGANIZ ATION 10/08/2024 [facility] Ambulatory Patient Care team informatio n (unrecognized section and content) Team Status: Active Member Role Status Dates Jeovanny Orellana MD Primary Care Provider Active Team Status: Inactive Member Role Status Dates eJovanny Orellana MD Primary Care Provider [facility] ProviderActiveTeam MemberRelationshipSpecialty Start DateEnd Date Jeovanny Orellana MD [address] [place] [address] PCP - General12/02/18Team MemberRelationshipSpecialtyStart DateEnd Date Jeovanny Orellana MD [address] [place] [facility] [address] PCP - General12/02/18 Goals (unrecognized section and content) Goals may be documented in a n alternate section Reason for Visit (unrecogniz ed section and content) ReasonCommentsFollow-up8 monthReasonCommentsAnnual Exam1 year follow up for Atherosclerosis of mesa grande coronary artery of [place] heart without angina pector isSpecialtyDiagnoses / ProceduresReferred By ContactReferred To Contact Cardiology Diagnoses Atherosclerosis of mesa grande coronary artery of mes[place] grande heart without angina pectoris Procedures Follow Up In Cardiology Dannielle Membreno, [place] [id number] Phone: tel: fax: Dannielle Membreno, [place] [id number] Phone: tel: fax: Referral IDStatusReasonStart DateExpiration DateVisits RequestedVisits [id number] FOR RECORDS PERTAINING TO PATIENTS WHO ARE OR HAVE BEEN ENROLLED IN A CHEMICAL DEPENDENCY/SUBSTANCEABUSE PROGRAM, SOME INFORMATION MAY BE OMITTED. This clinical summary was aggregated from multiple sources. Caution should be exercised in using it in the provision of clinical care. This summary normalizes information from multiple sources, and as a consequence, information in this document may materially change the coding, format and clinical context of patient data. In addition, data may be omitted in some cases. CLINICAL DECISIONS SHOULD BE BASED ON THE PRIMARY CLINICAL RECORDS. [facility] [email or web address] provides no warranty or guarantee of the accuracy or completeness of information in this document.
== END 2025-01-02 08:47 | disposition home or self-care (01) ==
LOC: CT 08:50
PROVIDERS: PCP Family Medicine; Visit Provider Family Medicine
DX: R91.1 Solitary pulmonary nodule (principal); F17.210 Nicotine dependence, cigarettes, uncomplicated; J44.9 Chronic obstructive pulmonary disease, unspecified
CPT/HCPCS: 71271